=== PATIENT | female | born 1995 | race Caucasian/White ===

== ENCOUNTER 2021-11-26 14:01 | Outpatient (REF) | payer OTHER, SELFPAY ==
[2021-11-26 15:39] LABS: Influenza A PCR NEGATIVE (Negative); Influenza B PCR NEGATIVE (Negative); Resp Syncy Virus RNA Qual PCR NEGATIVE (Negative); SARS COV2 PCR INHOUSE NEGATIVE (Negative)
== END 2021-11-26 14:02 | disposition home or self-care (01) ==
LOC: HO.LNP 14:01
PROVIDERS: Visit Provider Hospitalist
DX: J06.9 Acute upper respiratory infection, unspecified (principal); R09.89 Other specified symptoms and signs involving the circulatory and respiratory systems; Z20.822 Contact with and (suspected) exposure to COVID-19
CPT/HCPCS: 0241U

== ENCOUNTER 2025-01-31 09:34 | Outpatient (AMB) | payer BC, SELFPAY ==
--- NOTE | 2025-01-31 09:38 | A.OFFPC_ITS ---
Vital Signs 01/31/25 09:39 Height 5 ft 1 in Weight 109 lb 6 oz BMI 20.7 BP 108/62 Blood Pressure Location Rt brachial Position Sitting Pulse 110 H Pulse Source Pulse Oximeter Pulse Oximetry (%) 95 Oxygen Delivery Method Room Air Intake Visit Reasons: [place] LAYER-PE Allergies No Known Allergies Allergy (Verified 01/31/25 09:41) Medication List - Last Reconciled 01/31/25 by EVERARDO Carlisle albuterol sulfate 90 mcg/actuation 2 puffs inhalation Q4H PRN cetirizine (All Day Allergy (cetirizine)) 10 mg PO DAILY PRN cromolyn 100 mg PO BID dextroamphetamine-amphetamine 10 mg 10 mg PO BID dextroamphetamine-amphetamine 15 mg ER (Adderall XR) 15 mg PO QAM famotidine 20 mg PO DAILY loratadine mg PO omalizumab (Xolair) 300 mg subcut Q4W Tobacco use date assessed: 01/31/25 Dental Screening Dental Screen Date: 01/31/25 Did you have a dental visit in the last 12 months?: Yes Did you have a dental problem in the last 6 months where you did not have access to dental care?: No Was dental information given to patient?: Patient has dentist HPI HPI Comments History of Present Illness Details This is a 29-year-old female with a past medical history of ADHD, asthma and environmental allergies presenting to [facility]. She moved to [facility] with her boyfriend who is a med student at [employer]. She is from the [facility]. The patient's call or contact centre operator is Dr. Haider. She was recently started on Xolair for chronic hives. She also has a diagnosis of asthma treated with albuterol as needed. She has seasonal allergies. She is on famotidine, Zyrtec, cromolyn and Claritin for hives and allergies. Patient reports she had a CBC with her call or contact centre operator recently which is normal. She will upload it to the portal. She was diagnosed with ADHD almost 2 years ago. Her prior psychiatrist, Dr. Mahajan, prescribed her current regimen. She takes Adderall 15 ER q.a.m. and 10 mg in the afternoon (written as b.i.d. due to med shortage-it is currently out of stock). 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 Patient is referred to Gynecology for her annual exam. Her maternal grandmother had ovarian cancer. She is . The patient's mother had negative genetic testing. Last Tdap 03/07/2022. She will upload her immunization record to the portal. She reports that her recent hep B titer was negative so she is going to repeat the series at her pharmacy. She received the seasonal influenza vaccine. ROS: Constitutional: No unexplained weight loss, fever, chills, fatigue or night sweats. Eyes: No vision changes, blurry vision, double vision, eye pain, eye redness, eye discharge. ENT: No hearing loss, sneezing, congestion, runny nose or sore throat. Respiratory: No shortness of breath, cough or sputum production. Cardiovascular: No chest pain, chest pressure or chest discomfort. No palpitations or pedal edema. Gastrointestinal: No anorexia, nausea, vomiting or diarrhea. No abdominal pain or blood in stool. Genitourinary: No dysuria, hematuria, urinary frequency. Neurologic: No headache, dizziness, syncope, unilateral weakness, ataxia, numbness or tingling in the extremities. Musculoskeletal: No muscle pain, back pain, joint pain or swelling. Hematologic/Lymphatics: No bleeding or bruising. No painful lymph nodes. Skin: No rash or itching. Endocrine: No cold or heat intolerance. No polyuria or polydipsia. Psychiatric: No depression or anxiety. No SI/HI. Physical exam: Constitutional: Alert, in no distress. Head: Normocephalic. Eyes: Pupils are equal, round and reactive to light. Extraocular muscles intact. Ear, Nose and Throat: Canals clear. TMs almanzar and translucent, small scars b ilaterally on TMs.. Normal nasal mucosa. No nasal discharge. No oral lesions. Neck: Supple, Full range of motion. No lymphadenopathy. No palpable thyroid masses. Respiratory: Clear to auscultation. Cardiovascular: S1 S2 regular. No murmurs. Gastrointestinal: Abdomen soft, non-tender, non-distended. Normal bowel sounds. No palpable masses. Neurologic: No focal neurological deficits. Symmetric patellar reflexes. Moves all extremities spontaneously. Sensation intact bilaterally. Skin: No rashes or lesions. Musculoskeletal: No gross deformities. Normal range of motion. Extremities: Warm and well perfused. No clubbing, cyanosis or edema. 3+ peripheral pulses bilaterally. Psychiatric: Normal mood and affect [facility] Medical History (Updated 01/31/25 @ 10:16 by EVERARDO Carlisle) Therapeutic drug monitoring Screening for cardiovascular condition Routine physical examination ADHD Family History (Updated 01/31/25 @ 09:46 by [facility]) Maternal Grandfather Diabetes Father Prostate cancer Cancer of kidney Maternal Grandmother Ovarian cancer Esophageal cancer Social History (Updated 01/31/25 @ 09:42 by [facility]ui[facility]) Household Members: Significant Other Housing: Apartment Alcohol intake: current Alcohol intake frequency: a few times a month Alcohol type: hard liquor Patient Tobacco Use Status: Never used Tobacco e-Cigarette/Vaping Use: Never Used service: No Current occupational status: employed 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 1. Little interest or pleasure in doing things: not at all 2. Feeling down, depressed, or hopeless: not at all 3. Trouble falling or staying asleep, or sleeping too much: not at all 4. Feeling tired or having little energy: not at all 5. Poor appetite or overeating: not at all 6. Feeling bad about yourself - or that you are a failure or have let yourself or your family down: not at all 7. Trouble concentrating on things, such as reading the newspaper or watching television: several days 8. Moving or speaking so slowly that other people could have noticed. Or the opposite - being so fidgety or restless that you have been moving around a lot more than usual: not at all 9. Thoughts that you would be better off or of hurting yourself in some way: not at all Total score: 1 Depression Screening Interpretation: Negative Depression Screening Done: Yes 96966 - PHQ-9 Billing: Yes Source: Developed by Drs. Fede Mckeon, Christi Kline, Maximus Knowles and colleagues, with an educational ino from [employer]. Thrive Questionnaire Date Thrive assessed: 01/31/25 I am a: Patient What is your living situation today?: I have a steady place to live Within the past 12 months, did the food you bought not last and you didn't have the money to get more?: Never true Within the past 12 months, did you worry whether your food would run out before you got money to buy more?: Never true Do you have trouble paying for medicines?: No Do you have trouble getting transportation to medical appointments?: No Do you have trouble paying your heating and electricity bill?: No Do you have trouble taking care of your child, family member or friend?: No Do you have trouble with day-to-day activities such as bathing, preparing meals, shopping, managing finances, etc.?: No Are you currently unemployed and looking for a job?: No Are you interested in more education?: Yes Please select the resources that you would like help with: None Currently or been in a relationship where the following occur: No concerns reported THRIVE Score: 0 AUDIT C Alcohol Use Questionnaire (AUDIT-C) 1. How often do you have a drink containing alcohol?: Monthly or less 2. How many drinks containing alcohol do you have on a typical day when you are drinking?: 1 or 2 3. How often do you have six or more drinks on one occasion?: Never Total Score: 1 SREEDHAR-7 AMB Questionnaire SREEDHAR-7 Date SREEDHAR - 7 assessed: 01/31/25 Feeling nervous, anxious, or on edge: 1 = Several days Not being able to stop or control worryin = Several days Worrying too much about different things: 1 = Several days Trouble relaxin = Not at all Being so restless that it is hard to sit still: 0 = Not at all Becoming easily annoyed or irritable: 0 = Not at all Feeling afraid as if something awful might happen: 0 = Not at all Total SREEDHAR-7 score (0-4 normal; 5-9 mild; 10-14 moderate; 15-21 severe): 3 Source: Developed by Drs. Fede Mckeon, Christi Kline, Maximus Knowles and colleagues, with an educational ino from [employer]. SREEDHAR-7 Assessment Billing SREEDHAR-7 Assessment Tool: SREEDHAR-7 Assessment 09696 Physical exam (Primary Care) Vital Signs: Last Vital Signs Pulse 110 H 01/31/25 09:39 BP 108/62 01/31/25 09:39 Pulse Ox 95 01/31/25 09:39 Oxygen Delivery Method Room Air 03/10/25 09:39 BMI result Body Mass Index 20.7 Tobacco/Smoking Status: Tobacco use Status Tobacco use date assessed 01/31/25 01/31/25 09:49 Patient Tobacco Use Status Never used Tobacco 01/31/25 09:49 e-Cigarette/Vaping Use Never Used 01/31/25 09:49 PHQ-9: PHQ-9 Score PHQ-9: Total score 1 01/31/25 09:57 Depression Screening Interpretation: Negative Thrive Assessment: Date of Thrive Assessment Date Thrive assessed 01/31/25 01/31/25 09:49 Currently or been in a relationship where the following occur: No concerns reported Coding Level of Care Code New Pt Prev Care 18-39yr(40415 Diagnoses Routine physical examination Z00.00 ADHD F90.9 Additional Codes SREEDHAR-7 Assessment Billing - SREEDHAR-7 Assessment Tool: SREEDHAR-7 Assessment 53286 ([id number]) PHQ-9 - 17044 - PHQ-9 Billing: Yes ([id number]) Assessment & Plan Assessment & Plan (1) Routine physical examination: Code(s): Z00.00 - Encounter for general adult medical examination without abnormal findings Category: Medical Plan: Patient is seen today for a routine physical. As part of this visit we reviewed the following issues, which are considered and essential part of preventative health in this age group: - Breast Cancer screening - Annual Synthetic Resin Operator exam - Blood pressure screening - Cholesterol screening - Osteoporosis prevention including calcium/vitamin D intake, weight bearing exercise & smoking cessation - Nutritional and exercise counseling - Counseling of injury prevention including fire prevention, smoke alarms and seat belt usage - Screening for depression - Education about skin cancer - Recommendations about immunizations - Recommendation of an eye exam - Screening for substance abuse - Genetic cancer risk screening (2) ADHD: Code(s): F90.9 - Attention-deficit hyperactivity disorder, unspecified type Category: Medical Plan: The patient's psychiatrist no longer accepts her insurance. She has been stable on her regimen. She will have a UDS completed, and she signed a controlled substance agreement today. Plan Follow up in 6 months for med check. Orders: Orders Lipid Panel Today E78.5 - Hyperlipidemia, unspecified, F90.9 - Attention- deficit hyperactivity disorder, unspecified type, Z00.00 - Encounter for general adult medical examination without abnormal findings, Z13.6 - Encounter for screening for cardiovascular disorders, Z51.81 - Encounter for therapeutic drug level monitoring Comprehensive Met. Panel Today F90.9 - Attention-deficit hyperactivity disorder, unspecified type, Z00.00 - Encounter for general adult medical examination without abnormal findings, Z13.6 - Encounter for screening for cardiovascular disorders, Z51.81 - Encounter for therapeutic drug level monitoring Drug Screen Urine Today F90.9 - Attention-deficit hyperactivity disorder, unspecified type, Z00.00 - Encounter for general adult medical examination without abnormal findings, Z13.6 - Encounter for screening for cardiovascular disorders, Z51.81 - Encounter for therapeutic drug level monitoring Referrals [facility] Referral Z01.419 - Encounter for gynecological examination (general) (routine) without abnormal findings
[2025-01-31 09:39] VITALS: BP 108/62; PULSE 110; O2SAT 95; BMI 20.7
--- OUTSIDE RECORDS SUMMARY | 2025-01-31 10:22 | XMS_ITS | Patient Health Record ---
Author Organization [facility] Address [address] [place] [address] Care Team Providers Care Medical Records Coder Name Role Phone Out of Area, OOA Primary Care Provider Unavailab LD Nicolas Unavailable [phone] Urgi, Care Unavailable Unavailable Allergies No Known Allergies Reason For Referral No Information Social History Tobacco Use: Social History Observation Description Date Details (start date - stop date) Never Smoker NA - NA Tobacco Use/Smoking Question Answer Notes Current Smoking Status: nonsmoker Alcohol Screen (Audit-C) Question Answer Notes Did you have a drink containing alcohol in the p ast year? Yes Points 0 Interpretation Negative Problems Problem Type SNOMED Code ICD Code Onset Dates Problem Status W/U Status Risk Notes Problem [id number] Left foot pain (M79.672) Active confirmed Problem 180716725 Stress fracture of metatarsal bone of left foot, initial encounter (M84.375A) Active confirmed Problem 315696574 Closed fracture of sesamoid bone of left foot, initial encounter (S92.812A) Active confirmed Problem 29304009 Sesamoiditis of left foot (M25.872) Active confirmed Plan Of Treatment No Information Insurance Providers Payer Name Payer Address Payer Phone Subscriber Number Group Number Insured Name Patient Relationship to Insured Coverage Start Date Coverage End Date [employer] [facility] [address] [place] [address] [id number] Kaelyn Owen Self - patient is the insured 7
== END 2025-01-31 10:18 | disposition home or self-care (01) ==
PROVIDERS: PCP Physician Assistant Medical; Visit Provider Physician Assistant Medical
DX: Z00.00 Encounter for general adult medical examination without abnormal findings (principal); F90.9 Attention-deficit hyperactivity disorder, unspecified type

== ENCOUNTER → 2025-01-31 09:34 | Outpatient (BNVA) | payer SELFPAY | PROVIDERS: Visit Provider Physician Assistant Medical | DX: Z00.00 Encounter for general adult medical examination without abnormal findings (principal); F90.9 Attention-deficit hyperactivity disorder, unspecified type | CPT/HCPCS: 96127 ==

== ENCOUNTER 2025-06-13 10:28 | Outpatient (AMB) | payer OTHER, SELFPAY ==
--- NOTE | 2025-06-13 10:34 | MHC.PC.OV ---
Vital Signs 06/13/25 10:38 06/13/25 10:54 Height 5 ft 1 in Weight 101 lb BMI 19.1 BP 116/64 Blood Pressure Location Lt brachial Position Sitting Pulse 118 H 104 H Pulse Source Pulse Oximeter Temp 98.4 F Temp Source Temporal Artery Scan Pulse Oximetry (%) 98 Oxygen Delivery Method Room Air Intake Visit Reasons: neuro workup Intake Note: Kaelyn presents in the office today for a neurological work up. Allergies No Known Allergies Allergy (Verified 06/13/25 10:36) Tobacco use date assessed: 06/13/25 Dental Screening Dental Screen Date: 06/13/25 Did you have a dental visit in the last 12 months?: Yes Did you have a dental problem in the last 6 months where you did not have access to dental care?: No Was dental information given to patient?: Patient has dentist HPI HPI Comments History of Present Illness Details 29-year-old female with a past medical history of ADHD, asthma and environmental allergies presents for neurologic workup. 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 She saw Dr. Meeks who did several vision tests that did not reveal an issue with her eye, and Dr. Meeks brought up concerns about a neurological issue like MS. The patient reports a constellation of symptoms. She endorses blurry vision in her right eye and right eye pain for the past few weeks. She endorses headaches behind the left eye for several years which are more frequent during this year. She endorses intermittent tingling in both upper and both lower legs for the past year, most noticeably in the right leg. She feels more fatigued on top of chronic fatigue for years. She endorses a tremor in her right leg sometimes at rest and sometimes when she is lifting the leg. She also endorses weakness of her right leg which was noticed recently. She sometimes garbles her speech when she tries to speak. This has been going on for months. She also notices losing her train of thought and difficulty with word retrieval at times. She has been ?off balance? and very clumsy for years. They even made a joke about this at her old job and wrote on the white board how many days it has been since she last dropped something. This is also getting worse. She has a family history of migraines and rheumatoid arthritis. No other known neurological or autoimmune diseases in the family. No known chemical or environmental exposures. She says that she is sleeping okay. She feels anxious about the symptoms. No history of drug or alcohol problems. Nonsmoker. ROS: Constitutional: Interval weight loss of 8 lb. Denies fevers or chills. +fatigue. Denies night sweats. Eyes: No double vision, eye redness or discharge. See HPI. ENT: No hearing loss, sneezing, congestion, runny nose or sore throat. Respiratory: No shortness of breath, cough or sputum production. Cardiovascular: No chest pain, chest pressure or chest discomfort. No palpitations or pedal edema. Gastrointestinal: No anorexia, nausea, vomiting or diarrhea. No abdominal pain or blood in stool. Genitourinary: No dysuria, hematuria, urinary frequency. Neurologic: Denies seizures, blackouts, amnesia. See HPI. Musculoskeletal: No muscle pain, back pain, neck pain, joint pain or swelling. Hematologic/Lymphatics: No bleeding or bruising. No painful lymph nodes. Skin: No rash or itching. No known tick bites. Endocrine: No cold or heat intolerance. No polyuria or polydipsia. Psychiatric: +anxiety. Denies depression. Physical exam: Constitutional: Alert, in no distress. Eyes: Pupils are equal, round and reactive to light. Extraocular muscles intact. Ear, Nose and Throat: Canals clear. TMs normal. Normal nasal mucosa. No nasal discharge. No oral lesions. Neck: Supple, Full range of motion. No lymphadenopathy. No palpable thyroid masses. Respiratory: Clear to auscultation. Cardiovascular: S1 S2 regular. No murmurs. Gastrointestinal: Abdomen soft, non-tender, non-distended. Normal bowel sounds. No palpable masses. Neurologic:?Alert and oriented x 3, no focal deficits observed. There is a mild tremor of the right leg when she lifts it off of her chair. She has mildly decreased sensation on the right side of the face compared to the left. Sensation is intact bilaterally otherwise. Cranial nerve exam intact otherwise. [id number] normal. The right lower extremity strength is 3/5 compared to 5/5 on the left. Upper extremity strength is 4/5 bilaterally. Upper and lower extremity reflexes equal and symmetric. Normal gait.? Patient able to heel walk, toe walk and walk heel-to-toe across the floor.? No pronator drift.? She is swaying mildly with Romberg testing. Skin: No rashes Musculoskeletal: No gross deformities. Normal range of motion. Extremities: Warm and well perfused. No clubbing, cyanosis or edema. Intact peripheral pulses bilaterally. Psychiatric: Normal mood and affect [facility] Medical History (Updated 06/13/25 @ 13:44 by EVERARDO Carlisle) Clumsiness Word finding difficulty Abnormal neurological exam Chronic headaches Right leg weakness Paresthesia Blurry vision, right eye Fatigue Therapeutic drug monitoring Screening for cardiovascular condition Routine physical examination ADHD Family History Maternal Grandfather Diabetes Father Prostate cancer Cancer of kidney Maternal Grandmother Ovarian cancer Esophageal cancer Social History (Updated 06/13/25 @ 10:38 by Magaly Luke MA) Household Members: Significant Other Housing: Apartment Alcohol intake: current Alcohol intake frequency: a few times a month Alcohol type: hard liquor Patient Tobacco Use Status: Never used Tobacco e-Cigarette/Vaping Use: Never Used Second Hand Smoke Exposure: No Substance Use Type: Marijuana service: No Current occupational status: employed 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 Cognitive needs: No Hearing needs: No Vision needs: Yes Questionnaire Thrive Questionnaire Date Thrive assessed: 01/31/25 I am a: Patient What is your living situation today?: I have a steady place to live Within the past 12 months, did the food you bought not last and you didn't have the money to get more?: Never true Within the past 12 months, did you worry whether your food would run out before you got money to buy more?: Never true Do you have trouble paying for medicines?: No Do you have trouble getting transportation to medical appointments?: No Do you have trouble paying your heating and electricity bill?: No Do you have trouble taking care of your child, family member or friend?: No Do you have trouble with day-to-day activities such as bathing, preparing meals, shopping, managing finances, etc.?: No Are you currently unemployed and looking for a job?: No Are you interested in more education?: Yes Please select the resources that you would like help with: None Currently or been in a relationship where the following occur: No concerns reported THRIVE Score: 0 SREEDHAR-7 AMB Questionnaire SREEDHAR-7 Date SREEDHAR - 7 assessed: 01/31/25 Source: Developed by Drs. Fede Mckeon, Christi Kline, Maximus Knowles and colleagues, with an educational ino from [employer]. Physical exam (Primary Care) Vital Signs: Last Vital Signs Temp 98.4 F 06/13/25 10:38 Pulse 104 H 06/13/25 10:54 BP 116/64 06/13/25 10:38 Pulse Ox 98 06/13/25 10:38 Oxygen Delivery Method Room Air 06/13/25 10:38 BMI result Body Mass Index 19.1 Tobacco/Smoking Status: Tobacco use Status Tobacco use date assessed 06/13/25 06/13/25 10:38 Patient Tobacco Use Status Never used Tobacco 06/13/25 10:38 e-Cigarette/Vaping Use Never Used 06/13/25 10:38 Thrive Assessment: Date of Thrive Assessment Date Thrive assessed 01/31/25 06/13/25 10:38 Currently or been in a relationship where the following occur: No concerns reported Coding Level of Care Code Est Pt Level 4 (39731) Complex EM visit Add On G2211 Diagnoses Abnormal neurological exam R29.90 Word finding difficulty R47.89 Chronic nonintractable headache, unspecified headache type R51.9; G89.29 Headache type: unspecified Intractability: not intractable Paresthesia R20.2 Fatigue R53.83 Blurry vision, right eye H53.8 Clumsiness R27.8 Comment Direct patient care, completing documentation Assessment & Plan Assessment & Plan (1) Abnormal neurological exam: Code(s): R29.90 - Unspecified symptoms and signs involving the nervous system Category: Medical (2) Word finding difficulty: Code(s): R47.89 - Other speech disturbances Category: Medical (3) Chronic headaches: Code(s): R51.9 - Headache, unspecified; G89.29 - Other chronic pain Category: Medical Qualifiers: Headache type: unspecified Intractability: not intractable Qualified Code(s): R51.9 - Headache, unspecified; G89.29 - Other chronic pain (4) Paresthesia: Code(s): R20.2 - Paresthesia of skin Category: Medical (5) Fatigue: Code(s): R53.83 - Other fatigue Category: Medical (6) Blurry vision, right eye: Code(s): H53.8 - Other visual disturbances Category: Medical (7) Clumsiness: Code(s): R27.8 - Other lack of coordination Category: Medical Plan We reviewed the long differential for her symptoms which does include multiple sclerosis. We will check labs for electrolyte disturbance, vitamin deficiency, anemia, Lyme disease, thyroid disorder. See detailed list below. I will place a referral to Neurology and ordered MRI of the head/brain and cervical and lumbar spine. We discussed that demyelinating lesions are less common in the lumbar spine, but given weakness of her right lower extremity on exam and reported paresthesias and tremor I would also like to rule out spinal lesion causing the symptoms. She already has a follow up booked in July which may need to be changed based on results of testing. I advised her to report any progression or new symptoms. She understands. Orders: Orders Vitamin B12 and Folate Today D64.9 - Anemia, unspecified, H53.8 - Other visual disturbances, R20.2 - Paresthesia of skin, R29.898 - Other symptoms and signs involving the musculoskeletal system, R53.83 - Other fatigue Comprehensive Met. Panel Today H53.8 - Other visual disturbances, R20.2 - Paresthesia of skin, R29.898 - Other symptoms and signs involving the musculoskeletal system, R53.83 - Other fatigue Ferritin Today D64.9 - Anemia, unspecified, H53.8 - Other visual disturbances, R20.2 - Paresthesia of skin, R29.898 - Other symptoms and signs involving the musculoskeletal system, R53.83 - Other fatigue UA w Microscopic Today H53.8 - Other visual disturbances, R20.2 - Paresthesia of skin, R29.898 - Other symptoms and signs involving the musculoskeletal system, R39.9 - Unspecified symptoms and signs involving the genitourinary system, R53.83 - Other fatigue Urine Culture Today H53.8 - Other visual disturbances, R20.2 - Paresthesia of skin, R29.898 - Other symptoms and signs involving the musculoskeletal system, R39.9 - Unspecified symptoms and signs involving the genitourinary system, R53.83 - Other fatigue Lyme IgG/IgM w/reflex to WB Today H53.8 - Other visual disturbances, R20.2 - Paresthesia of skin, R29.898 - Other symptoms and signs involving the musculoskeletal system, R53.83 - Other fatigue Erythrocyte Sedimentation Rate Today H53.8 - Other visual disturbances, R20.2 - Paresthesia of skin, R29.898 - Other symptoms and signs involving the musculoskeletal system, R53.83 - Other fatigue MR head/brain wo con Today G89.29 - Other chronic pain, H53.8 - Other visual disturbances, R20.2 - Paresthesia of skin, R29.898 - Other symptoms and signs involving the musculoskeletal system, R51.9 - Headache, unspecified, R53.83 - Other fatigue MR cervical spine wo con Today G89.29 - Other chronic pain, H53.8 - Other visual disturbances, R20.2 - Paresthesia of skin, R29.898 - Other symptoms and signs involving the musculoskeletal system, R51.9 - Headache, unspecified, R53.83 - Other fatigue MR lumbar spine wo con Today G89.29 - Other chronic pain, H53.8 - Other visual disturbances, R20.2 - Paresthesia of skin, R29.898 - Other symptoms and signs involving the musculoskeletal system, R51.9 - Headache, unspecified, R53.83 - Other fatigue TSH reflex Free T4 Today H53.8 - Other visual disturbances, R20.2 - Paresthesia of skin, R29.898 - Other symptoms and signs involving the musculoskeletal system, R53.83 - Other fatigue Vitamin D 25-OH (D2 and D3) Today H53.8 - Other visual disturbances, M85.80 - Other specified disorders of bone density and structure, unspecified site, R20.2 - Paresthesia of skin, R29.898 - Other symptoms and signs involving the musculoskeletal system, R53.83 - Other fatigue Complete Blood Count Auto Diff Today H53.8 - Other visual disturbances, R20.2 - Paresthesia of skin, R29.898 - Other symptoms and signs involving the musculoskeletal system, R53.83 - Other fatigue IRON PROFILE Today D64.9 - Anemia, unspecified, H53.8 - Other visual disturbances, R20.2 - Paresthesia of skin, R29.898 - Other symptoms and signs involving the musculoskeletal system, R53.83 - Other fatigue Magnesium Today H53.8 - Other visual disturbances, R20.2 - Paresthesia of skin, R29.898 - Other symptoms and signs involving the musculoskeletal system, R53.83 - Other fatigue SUDARSHAN Reflex Titer and Pattern Today H53.8 - Other visual disturbances, R20.2 - Paresthesia of skin, R29.898 - Other symptoms and signs involving the musculoskeletal system, R53.83 - Other fatigue C Reactive Protein Today H53.8 - Other visual disturbances, R20.2 - Paresthesia of skin, R29.898 - Other symptoms and signs involving the musculoskeletal system, R53.83 - Other fatigue Rheumatoid Factor Today H53.8 - Other visual disturbances, R20.2 - Paresthesia of skin, R29.898 - Other symptoms and signs involving the musculoskeletal system, R53.83 - Other fatigue Referrals Neurology Referral H53.8 - Other visual disturbances, R20.2 - Paresthesia of skin, R29.898 - Other symptoms and signs involving the musculoskeletal system, R53.83 - Other fatigue
[2025-06-13 10:38] VITALS: BP 116/64; PULSE 118; TEMP 36.9; O2SAT 98; BMI 19.1
[2025-06-13 10:54] VITALS: PULSE 104
--- OUTSIDE RECORDS SUMMARY | 2025-06-13 11:28 | XMS_ITS | Clinical Summary ---
Author Organization [facility] Address [address] [place] [id number] Phone Care Team Providers Care Lap Polisher Name Role Phone Slime Resendiz Primary Care Provide r Allergies No known active allergies Medications aspirin 81 MG EC tablet Take 1 tablet (81 mg total) by mouth 2 (two) times a day for 28 days. 56 tablet 2 Active ondansetron (ZOFRAN) 4 MG tablet Take 1 tablet (4 mg total) by mouth every 8 (eight) hours as needed for nausea. 10 tablet 2 Active Additional Information Patient not taking.Reported on 06/10/2025 oxyCODONE 5 MG immediate release tablet Take 1-2 tablets (5-10 mg total) by mouth every 4 (four) hours as needed. 10 tablet 2 Active Additional Information Patient not taking.Reported on 06/10/2025 ibuprofen (ADVIL,MOTRIN) 200 MG tablet Take 3 tablets (600 mg total) by mouth every 8 (eight) hours as needed for pain (specific location in comments). 2 Active docusate sodium (COLACE) 100 MG capsule Take 1 capsule (100 mg total) by mouth 2 (two) times a day. 2 Active Additional Information Patient not taking.Reported on 06/10/2025 albuterol 90 mcg/actuation inhaler ProAir HFA 90 mcg/actuation aerosol inhaler Inhale 2 puffs every 4-6 hours by inhalation route as needed. Active dextroamphetamin e-amphetamine (ADDERALL XR) 15 MG 24 hr capsule Take 15 mg by mouth every morning. 5 Active EPINEPHrine (EPIPEN) 0.3 mg/0.3 mL auto-injector daily. Active fluticasone propionate 110 mcg/actuation inhaler Flovent HFA 110 mcg/actuation aerosol inhaler Inhale 1 puff twice a day by inhalation route. Active XOLAIR 150 mg/mL subcutaneous syringe 5 Active levonorgestreL (KYLEENA) 17.5 mcg/24 hr (5 yrs) 19.5 mg intrauterine device Kyleena 17.5 mcg/24 hrs (5yrs) 19.5mg intrauterine device Take 1 device by intrauterine route. Active propranoloL (INDERAL) 20 MG immediate release tablet Take 1 tablet 3 times a day by oral route. Active SUMAtriptan (IMITREX) 25 MG tablet sumatriptan 25 mg tablet 1 tablet PO at onset of headache, may repeat in 2hrs if needed Active cetirizine (ZYRTEC) 10 MG tablet Take 10 mg by mouth daily. Active famotidine (PEPCID) 20 MG tablet Take 20 mg by mouth 2 (two) times a day. Active cromolyn 20 mg/2 mL nebulizer solution Take 20 mg by nebulization 4 (four) times a day. Active Active Problems No known active problems Encounters Date Type Department Care Team Description 06/10/2025 2:15 PM EDT Office Visit [facility] [place] [address] [place] [address] Norma Meeks MD Visual disturbance (Primary Dx) from Last 3 Months Family History Medical History Relation Comments Diabetes Neg Hx Glaucoma Neg Hx Social History Tobacco Use Types Packs/Day Years Used Date Smoking Tobacco: Never Smokeless Tobacco: Never Tobacco Cessation:Counseling Given: Not Answered Alcohol Use Standard Drinks/Week Comments Yes 4 (1 standard drink = 0.6 oz pur e alcohol) Education Answer Date Recorded Are you interested in more education? Not on kole e 03/20/2023 Are you concerned about learning? Not on file 03/20/2023 No 03/20/2023 No 03/20/2023 Digital Access Answer Date Recorded No 04/20/2023 No 04/20/2023 Reliable internet access at home? Not on file 04/20/2023 Device with a working camera? Not on file Comments No Sex and Gender Information Value Date Recorded Sex Assigned at Female 03/21/2018 10:45 AM EDT Legal Sex Female 6:10 PM EST Gender Identity Female 03/21/2018 10:45 AM EDT Sexual Orientation Straight 03/21/2018 10 :45 AM EDT Last Filed Vital Signs Vital Sign Reading Time Taken Comments Blood Pressure 117/64 10/21/2022 3:33 PM EST Pulse 67 10/21/2022 3:33 PM EST Temperature 36.9 C (98.4 F) 10/21/2022 3:33 PM EST Respiratory Rate 14 10/21/2022 3:33 PM EST Oxygen Saturation 100% 10/21/2022 3:33 PM EST Inhaled Oxygen Concentration - - Weight 49.9 kg (110 lb) 03/19/2023 9:44 AM EDT Height 154.9 cm (5' 1 ) 03/19/2023 9:44 AM EDT Body Mass Index 20.78 03/19/2023 9:44 AM EDT Plan of Treatment Health Maintenance Due Date Last Done Comments DEPRESSION SCREENING 2008 HEPATITIS C SCREENING 2014 HIV ONE-TIME SCREENING (18-65 YEARS) 2014 PAP SMEAR 2017 COVID-19 VACCINE ( season) 2024 09/09/2022, 10/11/2021, 12/21/2020, Additional history exists Adult Td,Tdap Booster 03/07/2032 03/07/2022 , 07/24/2018, 03/30/2008 HIB VACCINES Completed 03/31/1998, 06/24, 04/28/1997, Additional history exists MENINGOCOCCAL VACCINES (ACWY) Completed 08/05/2013, 04/04/2009 MENINGOCOCCAL VACCINES (B) Completed 10/28/2017, SMOKING STATUS SCREENING (Once After 26 Yrs) Completed 06/10/2025 HEPATITIS A VACCINES Aged Out No long er eligible based on patient's age to complete this topic PNEUMOCOCCAL VACCINES (0-49 years) Aged Out No longer eligible based on patient's age to complete this topic Medical Devices Implanted Type Area Casing Running Machine Tender Device Identifier Shelf Expiration Date Model / Serial / Lot Iud Procedures Procedure Name Priority Date/Time Associated Diagnosis Comments OCT, OPTIC NERVE - OU - BOTH EYES Routine 06/10/2025 3:27 PM EDT Visual disturbance OCT, RETINA - OU - BOTH EYES Routine 06/10/2025 3:27 PM EDT Visual disturbance ENGLE VISUAL FIELD - OU - BOTH EYES Routine 06/10/2025 3:27 PM EDT Visual disturbance from Last 3 Months Results * OCT, Optic Nerve - OU - Both Eyes - Cirrus; RNFL; Disc (06/10/2025 3:27 PM EDT) Other Narrative MAHAD - 06/10/2025 3:28 PM EDT Right Eye Quality: Good. Retinal nerve fiber layer thickness (um): 108. Change: Baseline. Optic nerve head and nerve fiber layer: Normal. Left Eye Quality: Good. Retinal nerve fiber layer thickness (um): 106. Change: Baseline. Optic nerve head and nerve fiber layer: Normal. Notes Pt tolerated well , Optic Nerve OCT OU Done by Bry Leonard No focal areas of thinning seen OU Norma Meeks MD OPHTHALMOLOGY IMAGING Final Res ult MAHAD * OCT, RETINA - OU - BOTH EYES - Cirrus; Retina; Macula (06/10/2025 3:27 PM EDT) Central Macular Thickness - OS 227 HARMONY Central Macular Thickness - OD 221 HARMONY Other Narrative MAHAD - 06/10/2025 3:28 PM EDT Right Eye Quality was good. Findings include normal foveal contour. The Central Macular Thickness was 221. Left Eye Quality was good. Findings include normal foveal contour. The Central Macular Thickness was 227. General Details Testing performed by: MURRAY. Typewriter Operator Automatic Comments: MAC OCT OU. Notes Baseline scan No SRF or CME seen OU us Norma Meeks MD OPHTHALMOLOGY IMAGING Final Res ult MAHAD * Engle Visual Field - OU - Both Eyes (06/10/2025 3:27 PM EDT) HVF Pattern Standard Deviation (OS) - Left Eye 1.54 HARMONY HVF Pattern Standard Deviation (OD) - Right Eye 1.42 HARMONY HVF Mean Deviation (OS) - Left Eye -0.55 HARMONY HVF Mean Deviation (OD) - Right Eye -1.18 HARMONY Other Narrative MAHAD - 06/10/2025 3:36 PM EDT Right Eye Pattern: 24-2. Strategy: STEPHENIE - Faster. Mean Deviation: -1.18 dB. Pattern Standard Deviation: 1.42 dB. Change: Baseline. Findings: (Slight enlargement of blind spot ). Left Eye Pattern: 24-2. Strategy: STEPHENIE - Faster. Mean Deviation: -0.55 dB. Pattern Standard Deviation: 1.54 dB. Change: Baseline. Findings: Normal. Notes HVF 24-2 f OU,pt tolerated well ou. Done by Duane us Norma Meeks MD OPHTHALMOLOGY IMAGING Final Res ult MAHAD from Last 3 Months Insurance [facility] PPO EPO [facility] PPO EPO [facility] E[facility] P[facility] P[facility] E[facility] P[facility] EPO [facility] P[facility] EPO Member Subscriber Plan / Payer (Ef fective 2022-) Name:Brayden Kaelyn Relation to Subscriber:Self Name:Brayden Kaelyn Payer ID:[id number] (NAIC) Type:PPO Address: [address] Care Teams Lap Polisher Relationship Specialty Start Date End Date Slime Resendiz PA [address] [place] [id number] PCP - General Physician Safety And Health Consultant 06/10/25 Additional Source Comments The information contained in this document represents components of the legal health record. It is not the complete legal health record.[facility]
== END 2025-06-13 11:11 | disposition home or self-care (01) ==
LOC: HO.HMCFM 10:29
PROVIDERS: PCP Physician Assistant Medical; Visit Provider Physician Assistant Medical
DX: R29.90 Unspecified symptoms and signs involving the nervous system (principal); R47.89 Other speech disturbances; R51.9 Headache, unspecified; G89.29 Other chronic pain; R20.2 Paresthesia of skin; R53.83 Other fatigue; H53.8 Other visual disturbances; R27.8 Other lack of coordination

== ENCOUNTER 2025-06-13 11:16 | Outpatient (REF) | payer OTHER, SELFPAY ==
[2025-06-13 14:20] LABS: Appearance Urine Clear; Glucose Urine UA Negative (Negative); PH 8.0 (5.0-9.0); Specific Gravity - Urine <= 1.005 (1.005-1.025)
[2025-06-13 14:45] LABS: Alanine Aminotransferase 12 U/L (0-31); Albumin Level 4.9 g/dL (3.5-5.0); Alkaline Phosphatase 52 U/L (39-117); Anion Gap 12 (12-20); Aspartate Amino Transferase 19 U/L (5-31); Blood Urea Nitrogen 9 mg/dL (9-16); Calcium 9.2 mg/dL (8.4-10.2); Carbon Dioxide 25 mmol/L (22-29); Chloride 110 mmol/L (96-108); Estimated Glomerular Filt Rate > 60; Iron 131 mcg/dL (30-160); Magnesium 2.4 mg/dL (1.6-2.6); Percent Iron Saturation 47 % (15-50); Potassium 3.7 mmol/L (3.3-5.1); Sodium 143 mmol/L (135-145); Total Iron Binding Capacity 276 mcg/dL (228-428); Total Protein 7.3 g/dL (6.5-8.0); Unsaturated Iron Binding 145 ug/dL
[2025-06-13 14:46] LABS: Ferritin 97 ng/mL (10-122)
[2025-06-13 15:06] LABS: Folate 11.8 ng/mL (> or = 4.0); Vitamin B12 561 pg/mL (200-900)
[2025-06-14 05:28] LABS: Lyme Abs Screen <0.90 index
[2025-06-16 13:43] LABS: Anti Nuclear Antibody Screen NEGATIVE (NEGATIVE)
[2025-06-17 16:24] LABS: Vitamin D 25-OH, D2 <4 ng/mL; Vitamin D 25-OH, D3 29 ng/mL; Vitamin D 25-OH, Total 29 ng/mL (30-100)
== END 2025-06-13 11:17 | disposition home or self-care (01) ==
LOC: HO.WFDLDS 11:16
PROVIDERS: Visit Provider Physician Assistant Medical
DX: H53.8 Other visual disturbances (principal); D64.9 Anemia, unspecified; M85.80 Other specified disorders of bone density and structure, unspecified site; R53.83 Other fatigue; R20.2 Paresthesia of skin; R29.898 Other symptoms and signs involving the musculoskeletal system; R39.9 Unspecified symptoms and signs involving the genitourinary system
CPT/HCPCS: 36415; 80053; 81001; 82306; 82607; 82728; 82746; 83540; 83735; 84443; 85652; 86038; 86140; 86431; 86617; 86618; 87086

== ENCOUNTER 2025-06-23 11:59 | Outpatient (AMB) | payer OTHER, SELFPAY ==
--- NOTE | 2025-06-23 12:04 | MHC.PC.OV ---
Vital Signs 06/23/25 12:06 Height 5 ft 1 in Weight 100 lb 2 oz BMI 18.9 BP 100/60 Blood Pressure Location Lt brachial Position Sitting Pulse 110 H Pulse Source Pulse Oximeter Temp 98.7 F Temp Source Temporal Artery Scan Pulse Oximetry (%) 100 Oxygen Delivery Method Room Air Intake Visit Reasons: discharged from [facility] on 06/17 Intake Note: Kaelyn presents in the office today for Hospital Discharge. Allergies No Known Allergies Allergy (Verified 06/23/25 12:05) Tobacco use date assessed: 06/23/25 Dental Screening Dental Screen Date: 06/23/25 Did you have a dental visit in the last 12 months?: Yes Did you have a dental problem in the last 6 months where you did not have access to dental care?: No Was dental information given to patient?: Patient has dentist HPI HPI Comments History of Present Illness Details This is a 29-year-old female with a past medical history of ADHD, asthma, environmental allergies and MCAS presenting for hospital follow up. She was evaluated here recently for neurologic symptoms. She was in the process of getting MRIs, but she had progressive right leg weakness and right arm weakness which prompted the ED visit. She had lab work and negative imaging including a CT of the head, MRI of the head/brain, MRI of the cervical spine and MRI of the thoracic spine. She has an appointment with Neurology, Dr. Ravi, 07/20/2025. Her symptoms remained stable since hospitalization. Lab evaluation here to demonstrate mild vitamin-D deficiency. Patient requested additional labs for celiac and lead through the portal. These have been ordered. She needs PFMLA forms completed. [place] [facility] [place] demonstrated normal sed rate, electrolytes, renal function, blood sugar, iron, ferritin, liver function, C-reactive protein, B12, folate, TSH, urinalysis, rheumatoid factor, SUDARSHAN screen and Lyme screening. ROS: Constitutional: Interval weight loss of 9 lb since January. Denies fevers or chills. +fatigue. +night sweats. Eyes: No double vision, eye redness or discharge. +right eye blurry vision. ENT: No hearing loss, sneezing, congestion, runny nose or sore throat. Respiratory: No shortness of breath, cough or sputum production. Cardiovascular: No chest pain, chest pressure or chest discomfort. No palpitations or pedal edema. Gastrointestinal: No anorexia, nausea, vomiting or diarrhea. No abdominal pain or blood in stool. Genitourinary: No dysuria, hematuria, urinary frequency. Neurologic: Denies seizures, blackouts, amnesia. See HPI. Musculoskeletal: No muscle pain, back pain, neck pain, joint pain or swelling. Hematologic/Lymphatics: No bleeding or bruising. No painful lymph nodes. Skin: No rash or itching. No known tick bites. Endocrine: No cold or heat intolerance. No polyuria or polydipsia. Psychiatric: +anxiety. Denies depression. Physical exam: Constitutional: Alert, in no distress. Eyes: Pupils are equal, round and reactive to light. Extraocular muscles intact. Ear, Nose and Throat: Canals clear. TMs normal. Normal nasal mucosa. No nasal discharge. No oral lesions. Neck: Supple, Full range of motion. No lymphadenopathy. No palpable thyroid masses. Respiratory: Clear to auscultation. Cardiovascular: S1 S2 regular. No murmurs. Gastrointestinal: Abdomen soft, non-tender, non-distended. Normal bowel sounds. No palpable masses. Neurologic:? The right lower extremity strength is 3/5 compared to 5/5 on the left. She is swaying mildly with Romberg testing. Skin: No rashes Musculoskeletal: No gross deformities. Normal range of motion. Extremities: Warm and well perfused. No clubbing, cyanosis or edema. Intact peripheral pulses bilaterally. Psychiatric: Normal mood and affect [facility] Medical History (Updated 06/15/25 @ 20:15 by EVERARDO Carlisle) Paresthesia of upper and lower extremities of both sides Clumsiness Word finding difficulty Abnormal neurological exam Chronic headaches Right leg weakness Paresthesia Blurry vision, right eye Fatigue Therapeutic drug monitoring Screening for cardiovascular condition Routine physical examination ADHD Family History Maternal Grandfather Diabetes Father Prostate cancer Cancer of kidney Maternal Grandmother Ovarian cancer Esophageal cancer Social History (Updated 06/23/25 @ 12:06 by Magaly Luke MA) Household Members: Significant Other Housing: Apartment Alcohol intake: current Alcohol intake frequency: a few times a month Alcohol type: hard liquor Patient Tobacco Use Status: Never used Tobacco e-Cigarette/Vaping Use: Never Used Second Hand Smoke Exposure: No Use of substances other than those prescribed or required for medical reasons: Yes Substance Use Type: Marijuana service: No Current occupational status: employed 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 Cognitive needs: No Hearing needs: No Vision needs: Yes Questionnaire Thrive Questionnaire Date Thrive assessed: 01/31/25 I am a: Patient What is your living situation today?: I have a steady place to live Within the past 12 months, did the food you bought not last and you didn't have the money to get more?: Never true Within the past 12 months, did you worry whether your food would run out before you got money to buy more?: Never true Do you have trouble paying for medicines?: No Do you have trouble getting transportation to medical appointments?: No Do you have trouble paying your heating and electricity bill?: No Do you have trouble taking care of your child, family member or friend?: No Do you have trouble with day-to-day activities such as bathing, preparing meals, shopping, managing finances, etc.?: No Are you currently unemployed and looking for a job?: No Are you interested in more education?: Yes Please select the resources that you would like help with: None Currently or been in a relationship where the following occur: No concerns reported THRIVE Score: 0 SREEDHAR-7 AMB Questionnaire SREEDHAR-7 Date SREEDHAR - 7 assessed: 01/31/25 Source: Developed by Drs. Fede Mckeon, Christi Kline, Maximus Knowles and colleagues, with an educational ino from [employer]. Physical exam (Primary Care) Vital Signs: Last Vital Signs Temp 98.7 F 06/23/25 12:06 Pulse 110 H 06/23/25 12:06 BP 100/60 06/23/25 12:06 Pulse Ox 100 06/23/25 12:06 Oxygen Delivery Method Room Air 06/23/25 12:06 BMI result Body Mass Index 18.9 Tobacco/Smoking Status: Tobacco use Status Tobacco use date assessed 06/23/25 06/23/25 12:09 Patient Tobacco Use Status Never used Tobacco 06/23/25 12:09 e-Cigarette/Vaping Use Never Used 06/23/25 12:09 Thrive Assessment: Date of Thrive Assessment Date Thrive assessed 01/31/25 06/23/25 12:09 Currently or been in a relationship where the following occur: No concerns reported Coding Level of Care Code Est Pt Level 5 (25345) Complex EM visit Add On G2211 Diagnoses Right leg weakness R29.898 Word finding difficulty R47.89 Chronic nonintractable headache, unspecified headache type R51.9; G89.29 Headache type: unspecified Intractability: not intractable Paresthesia of upper and lower extremities of both sides R20.2 Abnormal neurological exam R29.90 Blurry vision, right eye H53.8 Time Spent (min) 50 Comment Reviewing hospital notes, reviewing labs, patient care, documentation Assessment & Plan Assessment & Plan (1) Right leg weakness: Code(s): R29.898 - Other symptoms and signs involving the musculoskeletal system Category: Medical (2) Word finding difficulty: Code(s): R47.89 - Other speech disturbances Category: Medical (3) Chronic headaches: Code(s): R51.9 - Headache, unspecified; G89.29 - Other chronic pain Category: Medical Qualifiers: Headache type: unspecified Intractability: not intractable Qualified Code(s): R51.9 - Headache, unspecified; G89.29 - Other chronic pain (4) Paresthesia of upper and lower extremities of both sides: Code(s): R20.2 - Paresthesia of skin Category: Medical (5) Abnormal neurological exam: Code(s): R29.90 - Unspecified symptoms and signs involving the nervous system Category: Medical (6) Blurry vision, right eye: Code(s): H53.8 - Other visual disturbances Category: Medical Plan Hospital admission follow up for progressive neurologic symptoms including right hemiplegia. Workup for intracranial mass and demyelinating disease negative. No significant spinal stenosis or disc herniation on MRI. She will start her vitamin-D supplement. Forms completed for work. She has an a neurologic consult on 07/20/2025. I am going to check for underlying infections with ova and parasite testing, GI panel, tick-borne panel and check creatinine kinase due to weakness. Check EMG. Tentative follow up is scheduled in July. Instructed to go to the ER for worsening symptoms. Orders: Orders Ova and Parasite Today R29.90 - Unspecified symptoms and signs involving the nervous system NE electromyogram (EMG) Today R29.898 - Other symptoms and signs involving the musculoskeletal system NE nerve conduction velocity Today R29.898 - Other symptoms and signs involving the musculoskeletal system GI Panel Today R29.90 - Unspecified symptoms and signs involving the nervous system Tick-borne Disease Molecular Today R29.90 - Unspecified symptoms and signs involving the nervous system Creatine Kinase Total Today R29.90 - Unspecified symptoms and signs involving the nervous system
[2025-06-23 12:06] VITALS: BP 100/60; PULSE 110; TEMP 37.1; O2SAT 100; BMI 18.9
--- OUTSIDE RECORDS SUMMARY | 2025-06-23 12:32 | XMS_ITS | Patient Health Record ---
Author Organization [facility] Address [address] [place] [address] Care Team Providers Care Medart Operator Name Role Phone Out of Area, OOA Primary Care Provider Unavailab LD Nicolas Unavailable [phone] Urgi, Care Unavailable Unavailable Allergies No Known [...] Problem Status W/U Status Risk Notes Problem [id number] Left foot pain (M79.672) Active confirmed Problem 122761968 Stress fracture of metatarsal bone of left foot, initial encounter (M84.375A) Active confirmed Problem 735835352 Closed fracture of sesamoid bone of left foot, initial encounter (S92.812A) Active confirmed Problem 02942749 Sesamoiditis of left foot (M25.872) Active confirmed Plan Of Treatment No Information Insurance Providers Payer Name Payer Address Payer Phone Subscriber Number Group Number Insured Name Patient Relationship to Insured Coverage Start Date Coverage End Date Blue Benefit Administrators [facility] [address] [place] [address] [id number] Kaelyn Owen Self - patient is the insured 7
--- OUTSIDE RECORDS SUMMARY | 2025-06-23 12:32 | XMS_ITS | Clinical Summary ---
Author Organization 175 [facility] Address [address] [place] [address] Phone Care Team Providers Care Technology Recruiter Name Role Phone Slime Resendiz Primary Care Provider [phone] Social History Tobacco Use Types Packs/Day Years Used Date Smoking Tobacco: Never Assessed Comments Unknown Sex and Gender Information Value Date Recorded Sex Assigned at Not on file Legal Sex Female 4:32 PM EDT Gender Identity Not on file Sexual Orientation Not on file Plan of Treatment Upcoming Encounters Date Type Department Care Team (Late st Contact Info) Description 07/20/2025 9:00 AM EDT Consult [facility] [address] [address] Betsy Hall MD [address] [phone] Health Maintenance Due Date Last Done Comments DTaP,Tdap,and Td Vaccines (1 - Tdap) 2015 Hepatitis B Vaccines (1 of 3 - 19+ 3-dose series) 2015 Cervical Cancer Screening: P ap Smear 2017 COVID-19 Vaccine ( - 2023-2 5 season) 2024 Depression Screening 11/24/2024 HIV Screening 06/23/2025 Hepatitis C Screening 06/23/2025 Social Influencers of Health Screening 06/23/2025 Influenza Vaccine (#1) 2025 HIB Vaccines Aged Out No longer eligi ble based on patient's age to complete this topic HPV Vaccines Aged Out No longer eligi ble based on patient's age to complete this topic Hepatitis A Vaccines Aged Out No long er eligible based on patient's age to complete this topic IPV Vaccines Aged Out No longer eligi ble based on patient's age to complete this topic MMR Vaccines Aged Out No longer eligi ble based on patient's age to complete this topic Meningococcal ACWY Vaccine Aged Out N o longer eligible based on patient's age to complete this topic Meningococcal B Vaccine Aged Out No l onger eligible based on patient's age to complete this topic Pneumococcal Vaccine: Pediat rics (0 to 5 Years) and At-Risk Patients (6 to 49 Years) Aged Out No longer eligible b ased on patient's age to complete this topic RSV Immunization Patients Un cathi 20 months Aged Out No longer eligible b ased on patient's age to complete this topic Varicella Vaccines Aged Out No longer eligible based on patient's age to complete this topic Insurance [facility] Care Teams Technology Recruiter Relationship Specialty Start Date End Date Slime Resendiz PA [address] [place] [address] PCP - General Physician Field Marketing Associate 06/23/25
--- OUTSIDE RECORDS SUMMARY | 2025-06-23 12:32 | XMS_ITS | Clinical Summary ---
Author Organization [facility] Address [address] [place] [phone] Phone Care Team Providers Care Director Non Profit Name Role Phone Slime Resendiz Primary Care [...] PM EDT Office Visit [facility] [place] [address] [place] [address] Norma Meeks MD Visual disturbance (Primary Dx) [...] this topic Medical Devices Implanted Type Area Labor Crew Supervisor Device Identifier Shelf Expiration Date Model / [...] 227. General Details Testing performed by: MURRAY. Supply Chain Coordinator Comments: MAC OCT OU. Notes Baseline scan [...] ult MAHAD from Last 3 Months Insurance [facility] PPO EPO [facility] PPO [facility]PO [facility] PPO EPO [facility] PPO EPO [facility] PPO EPO [facility] PPO EPO [facility] PPO EPO Member Subscriber Plan / Payer (Ef fective 2022-) Name:Brayden Kaelyn Relation to Subscriber:Self Name:Brayden Kaelyn Payer ID:[id number] (NAIC) Type:PPO Address: [address] Care Teams Director Non Profit Relationship Specialty Start Date End Date Slime Resendiz PA [address] [place] [id number] PCP - General Physician Pitch Filler 06/10/25 Additional Source Comments The information contained in this document represents components of the legal health record. It is not the complete legal health record.[facility]
== END 2025-06-23 12:57 | disposition home or self-care (01) ==
LOC: HO.HMCFM 12:00
PROVIDERS: PCP Physician Assistant Medical; Visit Provider Physician Assistant Medical
DX: R51.9 Headache, unspecified (principal); R29.898 Other symptoms and signs involving the musculoskeletal system; R47.89 Other speech disturbances; G89.29 Other chronic pain; R20.2 Paresthesia of skin; R29.90 Unspecified symptoms and signs involving the nervous system; H53.8 Other visual disturbances

== ENCOUNTER 2025-06-24 10:43 | Outpatient (REF) | payer OTHER, SELFPAY ==
--- OUTSIDE RECORDS SUMMARY | 2025-06-24 10:51 | XMS_ITS | Clinical Summary ---
Author Organization [facility] Address [address] [place] [address] Phone Care Team Providers Care Assistant Media Buyer Name Role Phone Slime Resenidz Primary Care Provide r Allergies No known [...] PM EDT Office Visit [facility] in [place] [address] [place] [address] Norma Meeks MD Visual disturbance (Primary Dx) [...] this topic Medical Devices Implanted Type Area Shipfitters Supervisor Device Identifier Shelf Expiration Date Model [...] 227. General Details Testing performed by: MURRAY. Roving Sizer Comments: MAC OCT OU. Notes Baseline scan [...] ult MAHAD from Last 3 Months Insurance [facility] PPO EPO [facility] PPO EPO [facility] PPO EPO [facility] PPO EPO [facility] PPO EPO [facility] PPO EPO [facility] PPO EPO Member Subscriber Plan / Payer (Ef fective 2022-) Name:Brayden Kaelyn Relation to Subscriber:Self Name:Brayden Kaelyn Payer ID:[id number] (NAIC) Type:PPO Address: [address] Care Teams Assistant Media Buyer Relationship Specialty Start Date End Date Slime Resendiz PA [address] [place] [id number] PCP - General Physician Investor 06/10/25 Additional Source Comments The information contained in this document represents components of the legal health record. It is not the complete legal health record.[facility]
--- OUTSIDE RECORDS SUMMARY | 2025-06-24 10:51 | XMS_ITS | Patient Health Record ---
Author Organization [facility] Address [address] [place] [address] Care Team Providers Care Neurodiagnostic Tech Name Role Phone Out of Area, OOA Primary Care Provider Unavailab LD Nicolas Unavailable [phone] Urgi, Care Unavailable Unavailable Allergies No Known [...] Problem Status W/U Status Risk Notes Problem Pain in left foot ([id number] 7) Left foot pain (M79.672) Active confirmed Problem Stress fracture of metatarsal bone (337967347) Stress fracture of metatarsal bone of left foot, initial encounter (M84.375A) Active confirmed Problem Closed fracture of sesamoid bone of left foot (15608149898646 105) Closed fracture of sesamoid bone of left foot, initial encounter (S92.812A) Active confirmed Problem Sesamoiditis of left foot (M25.872) Active confirmed Plan Of Treatment No Information Insurance Providers Payer Name Payer Address Payer Phone Subscriber Number Group Number Insured Name Patient Relationship to Insured Coverage Start Date Coverage End Date Blue Benefit Administrators [facility] [address] [place] [address] [id number] Kaelyn Owen Self - patient is the insured 7
--- OUTSIDE RECORDS SUMMARY | 2025-06-24 10:51 | XMS_ITS | Clinical Summary ---
Author Organization 175 [facility] Address [address] [place] [address] Phone Care Team Providers Care Front End Loader Operator Name Role Phone Slime Resendiz Primary Care Provider [phone] Social History Tobacco Use Types Packs/Day Years [...] Info) Description 07/20/2025 9:00 AM EDT Consult [facility] [address] [phone] Betsy Hall MD [address] [phone] Health Maintenance Due Date Last Done Comments [...] patient's age to complete this topic Insurance [facility] Care Teams Front End Loader Operator Relationship Specialty Start Date End Date Slime Resendiz PA [address] [place] [address] PCP - General Physician Water Taxi Operator 06/23/25
[2025-06-24 12:20] LABS: Hematocrit 37.2 % (37.0-47.0); Hemoglobin 12.8 g/dl (12.0-16.0); Imm Gran Abs Auto 0.02 X10*3/uL (0.00-0.03); Imm Gran Pct Auto 0.4 % (0.0-0.4); Lymphocytes Absolute Auto 1.5 X10*3/uL (1.2-4.9); MANUAL DIFF FLAG SCAN; Mean Corpuscular HGB Conc 34.4 g/dl (31.0-35.0); Mean Corpuscular Hemoglobin 29.8 pg (27.0-33.0); Mean Corpuscular Volume 86.5 fL (80.0-98.0); NRBC Abs Auto 0.000 X10*3/uL (0.0-0.012); NRBC Pct Auto 0.0 /100WBC (0.0-0.2); PLT CLUMP 1; Red Blood Count 4.30 X10*6/uL (4.20-5.50); SCAN SMEAR FLAG 1
[2025-06-24 13:14] LABS: Alanine Aminotransferase 12 U/L (0-31); Albumin Level 4.4 g/dL (3.5-5.0); Alkaline Phosphatase 51 U/L (39-117); Anion Gap 9 (12-20); Aspartate Amino Transferase 22 U/L (5-31); Blood Urea Nitrogen 12 mg/dL (9-16); Calcium 8.6 mg/dL (8.4-10.2); Carbon Dioxide 27 mmol/L (22-29); Chloride 107 mmol/L (96-108); Cholesterol 156 mg/dL (<200); Estimated Glomerular Filt Rate > 60; HDL Cholesterol 58 mg/dL (>40); Potassium 3.6 mmol/L (3.3-5.1); Sodium 139 mmol/L (135-145); Total Protein 6.8 g/dL (6.5-8.0); Triglycerides 48 mg/dL (<150)
[2025-06-24 13:17] LABS: Platelet Count 246 X10*3/uL (160-400); White Blood Count 5.8 X10*3/uL (4.8-10.8)
[2025-06-24 15:43] LABS: Cannabinoid Screen Urine POSITIVE (Not Detect)
[2025-06-27 08:09] LABS: A. Phagocytphilium DNA,RT-PCR NOT DETECTED (NOT DETECTED); Babesia Microti DNA, RT-PCR NOT DETECTED (NOT DETECTED); Borrelia Miyamotoi,DNA RT-PCR NOT DETECTED (NOT DETECTED); E.Chaffeensis DNA RT-PCR NOT DETECTED (NOT DETECTED); Lyme(Borrelia ssp)DNA RT-PCR NOT DETECTED (NOT DETECTED)
[2025-06-27 22:38] LABS: Immunoglobulin A 254 mg/dL (47-310)
[2025-07-02 20:04] LABS: Venous Lead <1.0 mcg/dL (<3.5)
== END 2025-06-24 10:44 | disposition home or self-care (01) ==
LOC: HO.WFDLDS 10:43
PROVIDERS: Visit Provider Physician Assistant Medical
DX: Z00.00 Encounter for general adult medical examination without abnormal findings (principal); Z13.6 Encounter for screening for cardiovascular disorders; Z51.81 Encounter for therapeutic drug level monitoring; F90.9 Attention-deficit hyperactivity disorder, unspecified type; E78.5 Hyperlipidemia, unspecified; R29.898 Other symptoms and signs involving the musculoskeletal system; R29.90 Unspecified symptoms and signs involving the nervous system; R53.83 Other fatigue; H53.8 Other visual disturbances; R20.2 Paresthesia of skin; R51.9 Headache, unspecified; G89.29 Other chronic pain
CPT/HCPCS: 80053; 80061; 80307; 82550; 82784; 83655; 85025; 86364; 87468; 87469; 87478; 87484; 87798

== ENCOUNTER 2025-08-02 08:23 | Outpatient (REF) | payer OTHER, SELFPAY ==
--- NOTE | 2025-08-02 08:25 | EMG_ITS ---
Chief complaint: Symptoms and signs involving the musculoskeletal system- right leg weakness Reason for referral: NCV/ EMG Referred by: EVERARDO Palacios Procedure done: Nerve conduction study and EMG was performed on right lower extremity Right tibial and peroneal motor studies were performed right superficial peroneal and sural sensory studies were performed right median lateral plantars mixed sensory studies were performed tibial H-reflex was obtained and paraspinal and limb muscles were tested with a needle. 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
--- OUTSIDE RECORDS SUMMARY | 2025-08-02 09:22 | XMS_ITS | Encounter Summary ---
Author Organization [facility] Address [address] [place] [address] [place] [address] Phone Care Team Providers Care Air Press Operator Name Role Phone Unknown, Unknown Primary Care Provider Lilia Hairston DO Primary Care Provi cathi Slime Resendiz Primary Care Provide r Reason for Referral * Surgical (Within 1 month) - Closed Specialty Diagnoses / Procedures Referred By Contact Referred To Contact airport operations crew member Diagnoses Neuralgia System, Provider Not In, [facility] [address] [address] airport operations crew member [address] [place] [address], [address], [address] [place] [address] Phone: tel: fax: Referral ID Status Reason Start Date Expiration Date Visits Re quested Visits Authorized [id number] Closed 04/23/2017 04/23/2018 99 [phone] Encounter Details Date Type Department Care Team (Late st Contact Info) Description 02/24/2017 Transcribe Orders [facility] [address] [place] [address] System, Provider Not In, [facility] [address] [address] Neuralgia (Primary Dx) Social History Tobacco Use Types Packs/Day Years Used Date Smoking Tobacco: Never Comments Unknown Sex and Gender Information Value Date Recorded Sex Assigned at Female 03/21/2018 10:45 AM EDT Legal Sex Female 6:10 PM EST Gender Identity Female 03/21/2018 10:45 AM EDT Sexual Orientation Straight 03/21/2018 10 :45 AM EDT documented as of this encounter Plan of Treatment Scheduled Referrals Name Type Priority Associated Diagnoses Order Schedule Ambulatory referral to [facility] Oral Maxillofacial Surgery Outpatient Referral Routine Neuralgia Ordered: 02/24/2017 documented as of this encounter Visit Diagnoses Diagnosis Neuralgia- Primary Unspecified neuralgia, neuritis, and radiculitis documented in this encounter Care Teams Air Press Operator Relationship Specialty Start Date End Date Unknown, Unknown, MD PCP - General 02/24/17 12/04/22 Lilia Kumar DO [address] [place] [address] PCP - General Internal Medicine 12/05/22 06/09/25 Slime Resendiz PA [address] [place] [phone] PCP - General Physician Forensic Audit Expert 06/10/25 documented as of this encounter Additional Source Comments The information contained in this document represents components of the legal health record. It is not the complete legal health record.[facility]
--- OUTSIDE RECORDS SUMMARY | 2025-08-02 09:22 | XMS_ITS | Clinical Summary ---
Author Organization 175 [facility] Address [address] [place] [address] Phone Care Team Providers Care Hotel Controller Name Role Phone Slime Resendiz Primary Care Provider [phone] Allergies No known active allergies Medications Xolair 150 mg/mL syringe subcutaneous syringe Inject 1 mL (150 mg total) under the skin every 28 (twenty-eigh t) days. 5 Active cromolyn (GASTROCROM) 100 mg/5 mL solution Take 5 mL (100 mg total) by mouth 4 (four) times a day. 5 Active cetirizine (ZyrTEC) 10 mg tablet Take 1 tablet (10 mg total) by mouth 1 (one) time each day. 5 Active amphetamine-dextr oamphetamine XR (ADDERALL XR) 15 mg 24 hr capsule Take 1 capsule (15 mg total) by mouth 1 (one) time each day. Max Daily Amount: 15 mg 5 Active amphetamine-dextr oamphetamine (ADDERALL) 10 mg tablet Take 1 tablet (10 mg total) by mouth if needed. 5 Active cholecalciferol (VITAMIN D-3) 50 mcg (2,000 unit) tablet Take 1 tablet (2,000 Units total) by mouth 1 (one) time each day. Active LORazepam (ATIVAN) 1 mg tablet Take 1 tablet (1 mg total) by mouth every 6 (six) hours if needed for anxiety. Max Daily Amount: 4 mg Active Encounters Date Type Department Care Team Description 07/24/2025 10:12 AM EDT - 07/24/2025 11:59 PM EDT Hospital Encounter [facility] MRI [address] [place] [phone] Blurred vision; Right-sided muscle weakness; Intermittent tingling sensation of right hand and foot Discharge Disposition: Home or Self Care 07/20/2025 9:00 AM EDT Consult [facility] [address] [phone] Betsy Hall MD Blurred vision (Primary Dx); Right-sided muscle weakness; Intermittent tingling sensation of right hand and foot from Last 3 Months Social History Tobacco Use Types Packs/Day Years Used Date Smoking Tobacco: Never Assessed Comments Unknown Sex and Gender Information Value Date Recorded Sex Assigned at Not on file Legal Sex Female 4:32 PM EDT Gender Identity Not on file Sexual Orientation Not on file Last Filed Vital Signs Vital Sign Reading Time Taken Comments Blood Pressure 113/77 07/20/2025 9:15 AM EDT Pulse 103 07/20/2025 9:15 AM EDT Temperature - - Respiratory Rate - - Oxygen Saturation 99% 07/20/2025 9:15 AM EDT Inhaled Oxygen Concentration - - Weight 46.3 kg (102 lb) 07/20/2025 9:15 AM EDT Height 154.9 cm (5' 1 ) 07/20/2025 9:15 AM EDT Body Mass Index 19.27 07/20/2025 9:15 AM EDT Plan of Treatment Upcoming Encounters Date Type Department Care Team (Late st Contact Info) Description 11/02/2025 2:40 PM EST Office Visit [facility] [address] [phone] Betsy Hall MD [address] [place] [phone] Health Maintenance Due Date Last Done Comments DTaP,Tdap,and Td Vaccines (1 - Tdap) 2015 Hepatitis B Vaccines (1 of 3 - 19+ 3-dose series) 2015 Pneumococcal Vaccine: Pediat rics (0 to 5 Years) and At-Risk Patients (6 to 49 Years) (1 of 2 - PCV) 2015 Cervical Cancer Screening: P ap Smear 2017 Depression Screening 11/24/2024 HIV Screening 06/23/2025 Hepatitis C Screening 06/23/2025 Social Influencers of Health Screening 06/23/2025 COVID-19 Vaccine (1 - 2023-2 5 season) 2025 Influenza Vaccine (#1) 2025 HIB Vaccines Aged [...] on patient's age to complete this topic Procedures Procedure Name Priority Date/Time Associated Diagnosis Comments MR ORBIT/FACE/NECK WO AND W CONTRAST Routine 07/24/2025 12:38 PM EDT Blurred vision Right-sided muscle weakness Intermittent tingling sensation of right hand and foot from Last 3 Months Results * MR Orbit/Face/Neck wo and w Contrast (07/24/2025 12:38 PM EDT) Anatomical Region Laterality Modality Head and Neck Magnetic Resonan ce 07/27/2025 2:31 PM EDT Impressions 07/27/2025 2:35 PM EDT Normal MRI of the orbits without and with contrast. -------- FINAL REPORT -------- Dictated By: GINETTE CALERO Dictated Date: 07/27/2025 14:31 ET Assigned Physician: GINETTE CALERO Reviewed and Electronically Signed By: GINETTE CALERO Signed Date: 07/27/2025 14:35 ET Workstation ID: [id number] Transcribed By: Self Edit Transcribed Date: 07/27/2025 14:31 ET Narrative 07/27/2025 2:35 PM EDT PROCEDURE: Orbital MRI INDICATION: Pain TECHNIQUE: Multiplanar, multisequence MRI of the orbits without and with contrast. 10 mL Dotarem injected intravenously from a 15 mL vial with the remainder discarded. COMPARISON: No priors available. FINDINGS: The globes are intact and are normal. No abnormal scleral enhancement. No orbital mass or inflammation. Lacrimal glands and extraocular muscles are normal. Optic nerves are normal in signal and morphology. No abnormal enhancement along the nerves. Orbital apices are clear. Cavernous sinuses are symmetric and within normal limits. No sellar mass. Pituitary gland is normal. Sinuses are clear. Skull base soft tissues are normal. The intracranial structures are normal. No abnormal intracranial enhancement. Major vascular structures enhance normally with contrast. Superficial soft tissues are normal. No mass or fluid collection. Procedure Note Ginette Calero MD - 07/27/2025 PROCEDURE: Orbital MRI INDICATION: Pain TECHNIQUE: Multiplanar, multisequence MRI of the orbits without and withcontrast. 10 mL Dotarem injected intravenously from a 15 mL vial with theremainder discarded. COMPARISON: No priors available. FINDINGS: The globes are intact and are normal. No abnormal scleral enhancement. No orbital mass or inflammation. Lacrimal glands and extraocular muscles are normal. Optic nerves are normal in signal and morphology. No abnormal enhancementalong the nerves. Orbital apices are clear. Cavernous sinuses are symmetric and withinnormal limits. No sellar mass. Pituitary gland is normal. Sinuses are clear. Skull base soft tissues are normal. The intracranial structures are normal. No abnormal intracranialenhancement. Major vascular structures enhance normally with contrast. Superficial soft tissues are normal. No mass or fluid collection. IMPRESSION: Normal MRI of the orbits without and with contrast. -------- FINAL REPORT -------- Dictated By: GINETTE CALERO Dictated Date: 07/27/2025 14:31 ET Assigned Physician: GINETTE CALERO Reviewed and Electronically Signed By: GINETTE CALERO Signed Date: 07/27/2025 14:35 ET Workstation ID: [id number] Transcribed By: Self Edit Transcribed Date: 07/27/2025 14:31 ET Betsy Hall MD IMG MRI PROCEDURES Final Result from Last 3 Months Insurance [facility] [address] [place] [address] Care Teams Hotel Controller Relationship Specialty Start Date End Date Slime Resendiz PA [address] [place] [address] PCP - General Physician Beam Press Operator 06/23/25
--- OUTSIDE RECORDS SUMMARY | 2025-08-02 09:22 | XMS_ITS | Encounter Summary ---
Author Organization [facility] Address [address] [place] [address] Phone Care Team Providers Care Aviation Operations Specialist Name Role Phone Unknown, Unknown Primary Care Provider Lilia Hairston DO Primary Care Provi cathi Slime Resendiz Primary Care Provide r Encounter Details Date Type Department Care Team (Late st Contact Info) Description 10/21/2022 Procedure Pass [facility] [address] [place] [address] Social History Tobacco Use Types Packs/Day Years Used Date Smoking Tobacco: Never Smokeless Tobacco: Never Alcohol Use Standard Drinks/Week Comments Yes 4 (1 standard drink = 0.6 oz pur e alcohol) Comments No Sex and Gender Information Value Date Recorded Sex Assigned at Female 03/21/2018 10:45 AM EDT Legal Sex Female 6:10 PM EST Gender Identity Female 03/21/2018 10:45 AM EDT Sexual Orientation Straight 03/21/2018 10 :45 AM EDT documented as of this encounter Plan of Treatment Not on file documented as of this encounter Visit Diagnoses Not on filedocumented in this encounter Care Teams Aviation Operations Specialist Relationship Specialty Start Date End Date Unknown, Unknown, PCP - General 02/24/17 12/04/22 Lilia Kumar DO [address] [place] [address] PCP - General Internal Medicine 12/05/22 06/09/25 Slime Resendiz PA [address] [place] [address] PCP - General Physician Gamewell Operator 06/10/25 documented as of this encounter Additional Source Comments The information contained in this document represents components of the legal health record. It is not the complete legal health record.[facility]
--- OUTSIDE RECORDS SUMMARY | 2025-08-02 09:22 | XMS_ITS | Patient Health Record ---
Author Organization [facility] Address [address] [place] [address] Care Team Providers Care Spinning Bath Person Name Role Phone Out of Area, OOA Primary Care Provider Unavailab LD Nicolas Unavailable [phone] Urgi, Care Unavailable Unavailable Allergies No Known [...] Risk Notes Problem Pain in left foot (20982728926190 7) Left foot pain (M79.672) Active confirmed Problem Stress fracture of metatarsal bone (393276332) Stress fracture of metatarsal bone of left foot, initial encounter (M84.375A) Active confirmed Problem Closed fracture of sesamoid bone of left foot (30386923433252 105) Closed fracture of sesamoid bone of left foot, initial encounter (S92.812A) Active confirmed Problem Sesamoiditis of left foot (M25.872) Active confirmed Plan Of Treatment No Information Insurance Providers Payer Name Payer Address Payer Phone Subscriber Number Group Number Insured Name Patient Relationship to Insured Coverage Start Date Coverage End Date Blue Benefit Administrators [facility] [address] [place] [address] [id number] Kaelyn Owen Self - patient is the insured 7
--- OUTSIDE RECORDS SUMMARY | 2025-08-02 09:22 | XMS_ITS | Clinical Summary ---
Author Organization [facility] Address [address] [place] [address] Phone Care Team Providers Care Information Technology Auditor Name Role Phone Slime Resendiz Primary Care [...] PM EDT Office Visit [facility] [place] [address] [place] [address] Norma Meeks MD Visual disturbance (Primary Dx) [...] 2024 09/09/2022, 10/11/2021, 12/21/2020, Additional history exists INFLUENZA VACCINE (#1) 2025 , 07/23/2017, 09/22/2015, Additional history exists Adult Td,Tdap Booster 03/07/2032 [...] this topic Medical Devices Implanted Type Area Trial Management Associate Device Identifier Shelf Expiration Date Model / [...] Disc (06/10/2025 3:27 PM EDT) Other Narrative HARMONY - 06/10/2025 3:28 PM EDT Right Eye [...] No focal areas of thinning seen OU us Norma Meeks MD OPHTHALMOLOGY IMAGING Final Res ult MAHAD * OCT, RETINA - OU - BOTH EYES - Cirrus; Retina; Macula (06/10/2025 3:27 PM EDT) Central Macular Thickness - OS 227 HARMONY Central Macular Thickness - OD 221 HARMONY Other Narrative HARMONY - 06/10/2025 3:28 PM EDT Right Eye Quality was good. Findings include normal foveal contour. The Central Macular Thickness was 221. Left Eye Quality was good. Findings include normal foveal contour. The Central Macular Thickness was 227. General Details Testing performed by: MURRAY. Family Services Manager Comments: MAC OCT OU. Notes Baseline scan No SRF or CME seen OU Norma Meeks MD OPHTHALMOLOGY IMAGING Final Res ult Performing Organization Address [facility] de Phone Number MAHAD * Engle Visual Field - OU - Both Eyes (06/10/2025 3:27 PM EDT) HVF Pattern Standard Deviation (OS) - Left Eye 1.54 HARMONY HVF Pattern Standard Deviation (OD) - Right Eye 1.42 HARMONY HVF Mean Deviation (OS) - Left Eye -0.55 HARMONY HVF Mean Deviation (OD) - Right Eye -1.18 HARMONY Other Narrative HARMONY - 06/10/2025 3:36 PM EDT Right Eye Pattern: 24-2. Strategy: STEPHENIE - Faster. Mean Deviation: -1.18 dB. Pattern Standard Deviation: 1.42 dB. Change: Baseline. Findings: (Slight enlargement of blind spot ). Left Eye Pattern: 24-2. Strategy: STEPHENIE - Faster. Mean Deviation: -0.55 dB. Pattern Standard Deviation: 1.54 dB. Change: Baseline. Findings: Normal. Notes HVF 24-2 f OU,pt tolerated well ou. Done by Duane Norma Meeks MD OPHTHALMOLOGY IMAGING Final Res ult Performing Organization Address [facility] de Phone Number MAHAD from Last 3 Months Insurance [facility] PPO EPO [facility] PPO EPO [facility] PPO EPO [employer] Care Teams Information Technology Auditor Relationship Specialty Start Date End Date Slime Resendiz PA [address] [place] [id number] PCP - General Physician Soda Jerker 06/10/25 Additional Source Comments The information contained in this document represents components of the legal health record. It is not the complete legal health record.[facility]
--- OUTSIDE RECORDS SUMMARY | 2025-08-02 09:22 | XMS_ITS | Encounter Summary ---
Author Organization [facility] Address [address] [place] [address] Phone Care Team Providers Care Clothing Sales Assistant Name Role Phone Unknown, Unknown Primary Care Provider Lilia Hairston DO Primary Care Provi cathi Slime Resendiz Primary Care Provide r Encounter Details Date Type Department Care Team (Late st Contact Info) Description 05/15/2022 Procedure Pass [facility], Radio Flouroscopy [address] [place] [address] Social History Tobacco Use Types Packs/Day Years Used Date Smoking Tobacco: Never Smokeless Tobacco: Never Alcohol Use Standard Drinks/Week Comments Yes 0 (1 standard drink = 0.6 oz pur e alcohol) 3 drinks weekly Comments Unknown Sex and Gender Information Value [...] on filedocumented in this encounter Care Teams Clothing Sales Assistant Relationship Specialty Start Date End Date Unknown, Unknown, PCP - General 02/24/17 12/04/22 Lilia Kumar DO [address] [place] [address] PCP - General Internal Medicine 12/05/22 06/09/25 Slime Resendiz PA [address] [place] [address] PCP - General Physician Bioinformatics Engineer 06/10/25 documented as of this encounter Additional Source Comments The information contained in this document represents components of the legal health record. It is not the complete legal health record.[facility]
--- OUTSIDE RECORDS SUMMARY | 2025-08-02 09:22 | XMS_ITS | Encounter Summary ---
Author Organization [facility] Address [address] [place] [address] Phone Care Team Providers Care Patient Safety Attendant Name Role Phone Unknown, Unknown Primary Care Provider Lilia Hairston DO Primary Care Provi cathi Slime Resendiz Primary Care Provide r Encounter Details Date Type Department Care Team (Late st Contact Info) Description 06/03/2022 Transcribe Orders [facility], Radio Flouroscopy [address] [place] [address] Magaly Rowe [address] [place] [phone] Social History Tobacco Use Types Packs/Day Years [...] on filedocumented in this encounter Care Teams Patient Safety Attendant Relationship Specialty Start Date End Date Unknown, Unknown, MD PCP - General 02/24/17 12/04/22 Lilia Kumar DO [address] [place] [address] PCP - General Internal Medicine 12/05/22 06/09/25 Slime Resendiz PA [address] [place] [address] PCP - General Physician Yarn Weight And Strength Tester 06/10/25 documented as of this encounter Additional Source Comments The information contained in this document represents components of the legal health record. It is not the complete legal health record.[facility]
== END 2025-08-02 08:24 | disposition home or self-care (01) ==
LOC: HO.NEURO 08:23
PROVIDERS: PCP Physician Assistant Medical; Visit Provider Physician Assistant Medical
DX: R29.898 Other symptoms and signs involving the musculoskeletal system (principal)
CPT/HCPCS: 95886; 95910

== ENCOUNTER → 2025-08-02 08:25 | Outpatient (BNV) | payer OTHER, SELFPAY | PROVIDERS: PCP Physician Assistant Medical; Visit Provider Psychiatry & Neurology Neurology | DX: G62.89 Other specified polyneuropathies (principal) | CPT/HCPCS: 95886; 95910 ==

== ENCOUNTER 2025-10-04 13:19 | Outpatient (REF) | payer OTHER, SELFPAY ==
--- NOTE | ~2025-10-04 | US_ITS ---
EXAMINATION: US PELVIS CLINICAL INFORMATION: R10.2 - Pelvic and perineal pain COMPARISON: None available. TECHNIQUE: Ultrasound of the pelvis is performed using both transabdominal and transvaginal transducers along with Doppler. Transvaginal imaging is performed due to inadequate visualization transabdominally. FINDINGS: Uterus: The uterus is anteverted and measures 7.6 x 2.7 x 4.0 cm. The double wall endometrial thickness is 7 mm. There is a small echogenic focus in the lower endometrial stripe with ringdown artifact of unlikely clinical significance. The uterus is smooth in contour and has normal myometrial echogenicity. No visible fibroid. Adnexa: Both ovaries are visualized. There is normal color flow to the adnexa. There is no ovarian torsion. There is trace free fluid. Right ovary measures 2.8 x 1.7 x 1.8 cm. Left ovary measures 3.4 x 1.8 x 2.2 cm. There is a dominant follicle. US/US pelvic and transvaginal IMPRESSION: Unremarkable pelvic ultrasound Electronically signed by: Coleman Bustillos MD 10/04/2025 02:43 PM EST
--- OUTSIDE RECORDS SUMMARY | 2025-10-04 14:58 | XMS_ITS | Patient Health Record ---
Author Organization [facility] Address [address] [place] [address] Care Team Providers Care Life Skills Instructor Name Role Phone Out of Area, OOA Primary Care Provider Unavailab LD Nicolas Unavailable [phone] Urgi, Care Unavailable Unavailable Allergies No Known [...] Risk Notes Problem Pain in left foot (84674201335192 7) Left foot pain (M79.672) Active confirmed Problem Stress fracture of metatarsal bone (292399914) Stress fracture of metatarsal bone of left foot, initial encounter (M84.375A) Active confirmed Problem Closed fracture of sesamoid bone of left foot (15507962066710 105) Closed fracture of sesamoid bone of left foot, initial encounter (S92.812A) Active confirmed Problem Sesamoiditis of left foot (M25.872) Active confirmed Plan Of Treatment No Information Insurance Providers Payer Name Payer Address Payer Phone Subscriber Number Group Number Insured Name Patient Relationship to Insured Coverage Start Date Coverage End Date Blue Benefit Administrators [facility] [address] [place] [address] [id number] Kaelyn Owen Self - patient is the insured 7
--- OUTSIDE RECORDS SUMMARY | 2025-10-04 14:58 | XMS_ITS | Clinical Summary ---
Author Organization [facility] Address [address] [place] [address] Phone Care Team Providers Care Senior Cost Analyst Name Role Phone Slime Resendiz Primary Care [...] Encounters Date Type Department Care Team Description 09/28/2025 Transcribe Orders [facility] Neurology [address] [place] [address] Catherine Gilman [place] Polyneuropathy (Primary Dx); Paresthesia of skin; Other speech disturbance; Other symptoms and signs involving the musculoskeletal system from Last 3 Months Family History Medical [...] 2014 HIV ONE-TIME SCREENING (18-65 YEARS) 2014 PNEUMOCOCCAL VACCINES (0-49 years) (1 of 2 - PCV) 2015 PAP SMEAR 2017 INFLUENZA VACCINE (#1) 2025 , 07/23/2017, 09/22/2015, Additional history exists COVID-19 VACCINE ( season) 2025 09/09/2022, 10/11/2021, 12/21/2020, Additional history exists Adult Td,Tdap Booster 03/07/2032 03/07/2022 , 07/24/2018, 03/30/2008 HIB VACCINES Completed 03/31/1998, 06/24, 04/28/1997, Additional history exists IPV VACCINES Completed 01/02/2001, 06/25, 04/28/1997, Additional history exists MENINGOCOCCAL VACCINES (ACWY) Completed 08/05/2013, 04/04/2009 MENINGOCOCCAL VACCINES (B) Completed 10/28/2017, SMOKING STATUS SCREENING (Once After 26 Yrs) Completed 06/10/2025 HEPATITIS A VACCINES Aged Out No long er eligible based on patient's age to complete this topic Medical Devices Implanted Type Area Farm Consultant Device Identifier Shelf Expiration Date Model / Serial / Lot Iud Insurance [facility] [id number] [place], [place] [id number] [facility] Care Teams Senior Cost Analyst Relationship Specialty Start Date End Date Slime Resendiz PA [address] [place] [id number] PCP - General Physician Stopboard Assembler 06/10/25 Additional Source Comments The information contained in this document represents components of the legal health record. It is not the complete legal health record.[facility]
--- OUTSIDE RECORDS SUMMARY | 2025-10-04 14:58 | XMS_ITS | Clinical Summary ---
Author Organization [facility] Address [address] [place] [address] Phone Care Team Providers Care Program Analyst Name Role Phone Slime Resendiz Primary Care Provider [phone] Allergies No known active allergies Medications Xolair [...] - 07/24/2025 11:59 PM EDT Hospital Encounter [facility] MRI [address] [place] [phone] Blurred vision; Right-sided muscle weakness; Intermittent tingling sensation of right hand and foot Discharge Disposition: Home or Self Care 07/20/2025 9:00 AM EDT Consult [facility] [address] [address] Betsy Hall MD Blurred vision (Primary Dx); [...] Description 11/02/2025 2:40 PM EST Office Visit [facility] [address] [phone] Betsy Hall MD [address] [place] [address] Health Maintenance Due Date Last Done Comments DTaP,Tdap,and Td Vaccines (1 - Tdap) 2015 Hepatitis B Vaccines (1 of 3 - 19+ 3-dose series) 2015 Pneumococcal Vaccine: Pediat rics (0 to 5 Years) and At-Risk Patients (6 to 49 Years) (1 of 2 - PCV) 2015 Cervical Cancer Screening: P ap Smear 2017 HPV Vaccines (1 - 3-dose SCD M series) 2023 Depression Screening 11/24/2024 HIV Screening 06/23/2025 Hepatitis C Screening 06/23/2025 Social Influencers of Health Screening 06/23/2025 COVID-19 Vaccine (1 - 2023-2 5 season) 2025 Influenza Vaccine (#1) 2025 RSV Immunization Adult Patie nts (1 - 1-dose 75+ series) 2071 HIB Vaccines Aged Out No longer eligi [...] Signed Date: 07/27/2025 14:35 ET Workstation ID: [id number] Transcribed By: Self Edit Transcribed Date: 07/27/2025 [...] Signed Date: 07/27/2025 14:35 ET Workstation ID: [id number] Transcribed By: Self Edit Transcribed Date: 07/27/2025 14:31 ET Betsy Hall MD IMG MRI PROCEDURES Final Result from Last 3 Months Insurance [facility] Care Teams Program Analyst Relationship Specialty Start Date End Date Slime Resendiz PA [address] [place] [phone] PCP - General Physician Airbrush Artist Technical 06/23/25
--- OUTSIDE RECORDS SUMMARY | 2025-10-04 14:58 | XMS_ITS | Encounter Summary ---
Author Organization [facility] Address [address] [place] [address] [place] [address] Phone Care Team Providers Care Printer Operator Name Role Phone Unknown, Unknown Primary Care Provider Lilia Hairston DO Primary Care Provi cathi Slime Resendiz Primary Care Provide r Reason for Referral * Surgical (Within 1 month) - Closed Specialty Diagnoses / Procedures Referred By Contact Referred To Contact quality assurance nurse Diagnoses Neuralgia System, Provider Not In, [facility] [address] quality assurance nurse [address] [place] [address], [address] Floor, [address] [place] [address] Phone: tel: fax: Referral ID Status Reason Start Date Expiration Date Visits Re quested Visits Authorized [id number] Closed 04/23/2017 04/23/2018 99 [phone] Encounter Details Date Type Department Care Team (Late st Contact Info) Description 02/24/2017 Transcribe Orders [facility] Referral Management [address] [place] [address] System, Provider Not In, [facility] [address] [address] Neuralgia (Primary Dx) Social History Tobacco Use [...] Associated Diagnoses Order Schedule Ambulatory referral [facility] [place]ill[facility] [place] Outpatient Referral Routine Neuralgia Ordered: 02/24/2017 documented as of this encounter Visit Diagnoses Diagnosis Neuralgia- Primary Unspecified neuralgia, neuritis, and radiculitis documented in this encounter Care Teams Printer Operator Relationship Specialty Start Date End Date Unknown, Unknown, MD PCP - General 02/24/17 12/04/22 Lilia Kumar DO [address] [place] [address] PCP - General Internal Medicine 12/05/22 06/09/25 Slime Resendiz PA [address] [place] [address] PCP - General Physician Orthophotography Technician 06/10/25 documented as of this encounter Additional Source Comments The information contained in this document represents components of the legal health record. It is not the complete legal health record.[facility]
--- OUTSIDE RECORDS SUMMARY | 2025-10-04 14:58 | XMS_ITS | Encounter Summary ---
Author Organization [facility] Address [address] [place] [address] Phone Care Team Providers Care Box Spinner Name Role Phone Unknown, Unknown Primary Care Provider Lilia Hairston DO Primary Care Provi cathi Slime Resendiz Primary Care Provide r Encounter Details Date Type Department Care Team (Late st Contact Info) Description 05/15/2022 Procedure Pass [facility] for Outpatient Care, Radio Flouroscopy [address] [place] [address] Social History Tobacco Use Types Packs/Day Years [...] on filedocumented in this encounter Care Teams Box Spinner Relationship Specialty Start Date End Date Unknown, Unknown, PCP - General 02/24/17 12/04/22 Lilia Kumar DO [address] [place] [address] PCP - General Internal Medicine 12/05/22 06/09/25 Slime Resendiz PA [address] [place] [address] PCP - General Physician Deaf/Hard Of Hearing Specialist 06/10/25 documented as of this encounter Additional Source Comments The information contained in this document represents components of the legal health record. It is not the complete legal health record.[facility]
--- OUTSIDE RECORDS SUMMARY | 2025-10-04 14:59 | XMS_ITS | Encounter Summary ---
Author Organization [facility] Address [address] [place] [address] Phone Care Team Providers Care Actionscript Developer Name Role Phone Unknown, Unknown Primary Care Provider Lilia Hairston DO Primary Care Provi cathi Slime Resendiz Primary Care Provide r Encounter Details Date Type Department Care Team (Late st Contact Info) Description 06/03/2022 Transcribe Orders [facility] for Outpatient Care, Radio Flouroscopy [address] [place] [address] Magaly Rowe [address] [place] [phone] Social History Tobacco Use Types Packs/Day Years [...] on filedocumented in this encounter Care Teams Actionscript Developer Relationship Specialty Start Date End Date Unknown, Unknown, MD PCP - General 02/24/17 12/04/22 Lilia Kumar DO [address] [place] [address] PCP - General Internal Medicine 12/05/22 06/09/25 Slime Resendiz PA [address] [place] [address] PCP - General Physician Skid Road Man 06/10/25 documented as of this encounter Additional Source Comments The information contained in this document represents components of the legal health record. It is not the complete legal health record.[facility]
--- OUTSIDE RECORDS SUMMARY | 2025-10-04 14:59 | XMS_ITS | Encounter Summary ---
Author Organization [facility] Address [address] [place] [address] Phone Care Team Providers Care Hearing Therapist Name Role Phone Unknown, Unknown Primary Care Provider Lilia Hairston DO Primary Care Provi cathi Slime Resendiz Primary Care Provide r Encounter Details Date Type Department Care Team (Late st Contact Info) Description 10/21/2022 Procedure Pass [facility] PERIOP [address] [place] [address] Social History Tobacco Use Types [...] on filedocumented in this encounter Care Teams Hearing Therapist Relationship Specialty Start Date End Date Unknown, Unknown, PCP - General 02/24/17 12/04/22 Lilia Kumar DO [address] [place] [address] PCP - General Internal Medicine 12/05/22 06/09/25 Slime Resendiz PA [address] [place] [address] PCP - General Physician Car Lubricator 06/10/25 documented as of this encounter Additional Source Comments The information contained in this document represents components of the legal health record. It is not the complete legal health record.[facility]
== END 2025-10-04 13:20 | disposition home or self-care (01) ==
LOC: HO.US 13:19
PROVIDERS: PCP Physician Assistant Medical; Visit Provider Physician Assistant Medical
DX: R10.23 Pelvic and perineal pain bilateral (principal); G62.9 Polyneuropathy, unspecified
CPT/HCPCS: 76830; 76856

== ENCOUNTER → 2025-10-04 13:20 | Outpatient (BNV) | payer OTHER, SELFPAY | PROVIDERS: PCP Physician Assistant Medical; Visit Provider Radiology Diagnostic Radiology | DX: R10.20 Pelvic and perineal pain unspecified side (principal) | CPT/HCPCS: 76830; 76856 ==

== ENCOUNTER 2025-10-06 09:18 | Outpatient (AMB) | payer OTHER, SELFPAY ==
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
[2025-10-06 09:29] VITALS: BP 100/68; PULSE 84; TEMP 36.9; O2SAT 98; BMI 20.8
--- OUTSIDE RECORDS SUMMARY | 2025-10-06 10:36 | XMS_ITS | Patient Health Record ---
Author Organization [facility] Address [address] [place] [address] Care Team Providers Care Shop Technician Name Role Phone Out of Area, OOA Primary Care Provider Unavailab LD Nicolas Unavailable [phone] Urgi, Care Unavailable Unavailable Allergies No Known [...] Risk Notes Problem Pain in left foot ([id number] 7) Left foot pain (M79.672) Active confirmed Problem Stress fracture of metatarsal bone (059762948) Stress fracture of metatarsal bone of left foot, initial encounter (M84.375A) Active confirmed Problem Closed fracture of sesamoid bone of left foot (93487508908253 105) Closed fracture of sesamoid bone of left foot, initial encounter (S92.812A) Active confirmed Problem Sesamoiditis of left foot (M25.872) Active confirmed Plan Of Treatment No Information Insurance Providers Payer Name Payer Address Payer Phone Subscriber Number Group Number Insured Name Patient Relationship to Insured Coverage Start Date Coverage End Date Blue Benefit Administrators [facility] [address] [place] [address] [id number] Kaelyn Owen Self - patient is the insured 7
--- OUTSIDE RECORDS SUMMARY | 2025-10-06 10:36 | XMS_ITS | Clinical Summary ---
Author Organization [address] [facility] Address [address] [place] [address] Phone Care Team Providers Care Cloth Winder Name Role Phone Slime Resendiz Primary Care Provider [phone] Allergies No known active allergies Medications Xolair [...] - 07/24/2025 11:59 PM EDT Hospital Encounter [facility] MRI [address] [place] [phone] Blurred vision; Right-sided muscle weakness; Intermittent tingling sensation of right hand and foot Discharge Disposition: Home or Self Care 07/20/2025 9:00 AM EDT Consult [facility] [address] [phone] Betsy Hall MD Blurred vision [...] Description 11/02/2025 2:40 PM EST Office Visit [facility] [address] [phone] Betsy Hall MD [address] [place] [address] Health Maintenance Due Date Last Done Comments [...] Health Screening 06/23/2025 COVID-19 Vaccine (1 - 2024-2 6 season) 2025 Influenza Vaccine (#1) 2025 RSV [...] Signed Date: 07/27/2025 14:35 ET Workstation ID: [id number] Transcribed By: Self Edit Transcribed Date: 07/27/2025 [...] Signed Date: 07/27/2025 14:35 ET Workstation ID: [id number] Transcribed By: Self Edit Transcribed Date: 07/27/2025 14:31 ET Betsy Hall MD IMG MRI PROCEDURES Final Result from Last 3 Months Insurance [facility] Care Teams Cloth Winder Relationship Specialty Start Date End Date Slime Resendiz PA [address] [place] [phone] PCP - General Physician Shipmaster 06/23/25
== END 2025-10-06 10:05 | disposition home or self-care (01) ==
LOC: HO.HMCFM 09:19
PROVIDERS: PCP Physician Assistant Medical; Visit Provider Physician Assistant Medical
DX: R53.1 Weakness (principal); F90.9 Attention-deficit hyperactivity disorder, unspecified type; F41.9 Anxiety disorder, unspecified; F32.A Depression, unspecified; D89.40 Mast cell activation, unspecified; G62.9 Polyneuropathy, unspecified

== ENCOUNTER 2025-10-06 09:18 | Outpatient (REF) | payer OTHER, SELFPAY ==
--- OUTSIDE RECORDS SUMMARY | 2025-10-06 12:53 | XMS_ITS | Encounter Summary ---
Author Organization [facility] Address [address] [place] [address] Phone Care Team Providers Care Pediatrics Physician Name Role Phone Unknown, Unknown Primary Care Provider Lilia Hairston DO Primary Care Provi acthi Slime Resendiz Primary Care Provide r Encounter Details Date Type Department Care Team (Late st Contact Info) Description 06/03/2022 Transcribe Orders [facility] for Outpatient Care, Radio Flouroscopy [address] [place] [address] Magaly Rowe [address] [place] [phone] Social History Tobacco Use Types Packs/Day Years [...] on filedocumented in this encounter Care Teams Pediatrics Physician Relationship Specialty Start Date End Date Unknown, Unknown, MD PCP - General 02/24/17 12/04/22 Lilia Kumar DO [address] [place] [address] PCP - General Internal Medicine 12/05/22 06/09/25 Slime Resendiz PA [address] [place] [address] PCP - General Physician Fiber Locking Supervisor 06/10/25 documented as of this encounter Additional Source Comments The information contained in this document represents components of the legal health record. It is not the complete legal health record.[facility]
--- OUTSIDE RECORDS SUMMARY | 2025-10-06 12:53 | XMS_ITS | Encounter Summary ---
Author Organization [facility] Address [address] [place] [address] [place] [address] Phone Care Team Providers Care Technical Expert Name Role Phone Unknown, Unknown Primary Care Provider Lilia Hairston DO Primary Care Provi cathi Slime Resendiz Primary Care Provide r Reason for Referral * Surgical (Within 1 month) - Closed Specialty Diagnoses / Procedures Referred By Contact Referred To Contact senior brand manager Diagnoses Neuralgia System, Provider Not In, [facility] [address] senior brand manager [address] [place] [address], [address] Floor, [address] [place] [address] Phone: tel: fax: Referral ID Status Reason Start Date Expiration Date Visits Re quested Visits Authorized [id number] Closed 04/23/2017 04/23/2018 99 99 Encounter Details Date Type Department Care Team (Late st Contact Info) Description 02/24/2017 Transcribe Orders [facility] Referral Management [address] [place] [address] System, Provider Not In, [facility] [address] [address] Neuralgia (Primary Dx) Social History Tobacco Use [...] Associated Diagnoses Order Schedule Ambulatory referral to [facility] Outpatient Referral Routine Neuralgia Ordered: 02/24/2017 documented as of this encounter Visit Diagnoses Diagnosis Neuralgia- Primary Unspecified neuralgia, neuritis, and radiculitis documented in this encounter Care Teams Technical Expert Relationship Specialty Start Date End Date Unknown, Unknown, MD PCP - General 02/24/17 12/04/22 Lilia Kumar DO [address] [place] [address] PCP - General Internal Medicine 12/05/22 06/09/25 Slime Resendiz PA [address] [place] [address] PCP - General Physician Treatment Plant Mechanic 06/10/25 documented as of this encounter Additional Source Comments The information contained in this document represents components of the legal health record. It is not the complete legal health record.[facility]
--- OUTSIDE RECORDS SUMMARY | 2025-10-06 12:53 | XMS_ITS | Encounter Summary ---
Author Organization [facility] Address [address] [place] [address] Phone Care Team Providers Care Green Ware Caster Name Role Phone Unknown, Unknown Primary Care Provider Lilia Hairston DO Primary Care Provi cathi Slime Resendiz Primary Care Provide r Encounter Details Date Type Department Care Team (Late st Contact Info) Description 05/15/2022 Procedure Pass [facility] for Outpatient Care, Radio Flouroscopy [address] [place] [address] Social History Tobacco Use Types Packs/Day Years [...] on filedocumented in this encounter Care Teams Green Ware Caster Relationship Specialty Start Date End Date Unknown, Unknown, PCP - General 02/24/17 12/04/22 Lilia Kumar DO [address] [place] [address] PCP - General Internal Medicine 12/05/22 06/09/25 Slime Resendiz PA [address] [place] [address] PCP - General Physician Glass Carrier 06/10/25 documented as of this encounter Additional Source Comments The information contained in this document represents components of the legal health record. It is not the complete legal health record.[facility]
--- OUTSIDE RECORDS SUMMARY | 2025-10-06 12:53 | XMS_ITS | Encounter Summary ---
Author Organization [facility] Address [address] [place] [phone] Phone Care Team Providers Care Wall Taper Helper Name Role Phone Unknown, Unknown Primary Care Provider Lilia Hairston DO Primary Care Provi cathi Slime Resendiz Primary Care Provide r Encounter Details Date Type Department Care Team (Late st Contact Info) Description 10/21/2022 Procedure Pass [facility] WAL PERIOP [address] [place] [address] Social History Tobacco Use Types [...] on filedocumented in this encounter Care Teams Wall Taper Helper Relationship Specialty Start Date End Date Unknown, Unknown, PCP - General 02/24/17 12/04/22 Lilia Kumar DO [address] [place] [address] PCP - General Internal Medicine 12/05/22 06/09/25 Slime Resendiz PA [address] [place] [address] PCP - General Physician Plant Engineering Manager 06/10/25 documented as of this encounter Additional Source Comments The information contained in this document represents components of the legal health record. It is not the complete legal health record.[facility]
--- OUTSIDE RECORDS SUMMARY | 2025-10-06 12:53 | XMS_ITS | Clinical Summary ---
Author Organization [facility] Address [address] [place] [address] Phone Care Team Providers Care Cloth Neutralizer Name Role Phone Slime Resendiz Primary Care [...] Department Care Team Description 09/28/2025 Transcribe Orders [facility] Neurology [address] [place] [address] Catherine Gilman [place] Polyneuropathy (Primary Dx); Paresthesia [...] this topic Medical Devices Implanted Type Area Haul Cane Brakeman Device Identifier Shelf Expiration Date Model / Serial / Lot Iud Insurance [facility] [employer] [employer] [facility] [id number] [place] [address] [employer] [facility] [employer] [facility] [facility] [facility] Care Teams Cloth Neutralizer Relationship Specialty Start Date End Date Slime Resendiz PA [address] [place] [address] PCP - General Physician Product Safety Specialist 06/10/25 Additional Source Comments The information contained in this document represents components of the legal health record. It is not the complete legal health record.[facility]
[2025-10-06 14:20] LABS: MANUAL DIFF FLAG NO
[2025-10-06 14:29] LABS: Hematocrit 39.3 % (37.0-47.0); Hemoglobin 13.2 g/dl (12.0-16.0); Imm Gran Abs Auto 0.01 X10*3/uL (0.00-0.03); Imm Gran Pct Auto 0.2 % (0.0-0.4); Lymphocytes Absolute Auto 1.6 X10*3/uL (1.2-4.9); Mean Corpuscular HGB Conc 33.6 g/dl (31.0-35.0); Mean Corpuscular Hemoglobin 29.7 pg (27.0-33.0); Mean Corpuscular Volume 88.5 fL (80.0-98.0); NRBC Abs Auto 0.000 X10*3/uL (0.0-0.012); NRBC Pct Auto 0.0 /100WBC (0.0-0.2); Platelet Count 287 X10*3/uL (160-400); Red Blood Count 4.44 X10*6/uL (4.20-5.50); White Blood Count 5.2 X10*3/uL (4.8-10.8)
[2025-10-06 15:04] LABS: Alanine Aminotransferase 11 U/L (0-31); Albumin Level 4.5 g/dL (3.5-5.0); Alkaline Phosphatase 51 U/L (39-117); Anion Gap 9 (12-20); Aspartate Amino Transferase 21 U/L (5-31); Blood Urea Nitrogen 11 mg/dL (9-16); Calcium 8.9 mg/dL (8.4-10.2); Carbon Dioxide 26 mmol/L (22-29); Chloride 108 mmol/L (96-108); Estimated Glomerular Filt Rate > 60; Magnesium 2.2 mg/dL (1.6-2.6); Potassium 4.0 mmol/L (3.3-5.1); Sodium 139 mmol/L (135-145); Total Protein 7.1 g/dL (6.5-8.0)
[2025-10-06 15:27] LABS: Erythrocyte Sedimentation Rate 10 MM/HR (0-20)
[2025-10-07 14:08] LABS: Antibody to SS-A Antigen <1.0 NEG AI (<1.0 NEG); Antibody to SS-B Antigen <1.0 NEG AI (<1.0 NEG)
[2025-10-09 23:48] LABS: Arsenic, Blood <3 mcg/L (<23); Lead, Blood <1.0 mcg/dL (<3.5); Mercury, Blood <4 mcg/L (<=10)
== END 2025-10-06 09:19 | disposition home or self-care (01) ==
LOC: HO.WFDLDS 09:18
PROVIDERS: PCP Physician Assistant Medical; Visit Provider Physician Assistant Medical
DX: R53.83 Other fatigue (principal); R53.1 Weakness; F41.9 Anxiety disorder, unspecified; F90.9 Attention-deficit hyperactivity disorder, unspecified type; F32.A Depression, unspecified; D89.40 Mast cell activation, unspecified; G62.9 Polyneuropathy, unspecified
CPT/HCPCS: 36415; 80053; 82175; 83655; 83735; 83825; 84443; 85025; 85652; 86235